=== PATIENT | male | born 1930 | race Caucasian/White ===

== ENCOUNTER → 2016-10-18 | Outpatient (CLI) | payer OTHER ==
[~2016-10-18] MED LIST: ASPI325T39 PO; ATOR-24 PO; FINA5TAB PO; HYT/10 PO; IPRA1AER2 INH; LSN5 PO; MULTTAB58 PO; NIAC1TAB52 PO; NITR0.4S UT; PLN25 PO; PROP20TA66 PO; TIOT1SPR INH; TRMCR130WC TOP; WARF-246 PO
[2016-10-18 13:17] LABS: ALT/SGPT 56 U/L (12-78); BLOOD UREA NITROGEN 16 mg/dl (7-18); BUN/CREATININE RATIO 14.3 (10-20); CALCIUM 8.6 mg/dl (8.5-10.1); CARBON DIOXIDE 27 mmol/L (21-32); CHLORIDE 106 mmol/L (98-107); CHOLESTEROL 141 mg/dl (0-200); GLUCOSE 123 mg/dl (70-99); SODIUM 141 mmol/L (136-145)
[2016-10-18 13:22] LABS: ALB/GLOB RATIO 1.1 (0.9-2); ALKALINE PHOSPHATASE 68 U/L (45-117); AST/SGOT 38 U/L (15-37); CHOLESTEROL/HDL RATIO 2.9; HDL CHOLESTEROL 48 mg/dl; LDL CHOLESTEROL CALCULATED 63 mg/dl; TRIGLYCERIDES 152 mg/dl (0-150); VERY LOW DENSITY LIPOPROT CALC 30 mg/dl
== END | disposition home or self-care (01) ==
LOC: C.LABPVFM 08:27
PROVIDERS: ATTEND Family Medicine
DX: E78.5 Hyperlipidemia, unspecified (principal); I10 Essential (primary) hypertension; J44.9 Chronic obstructive pulmonary disease, unspecified

== ENCOUNTER → 2016-10-28 | Outpatient (CLI) | payer OTHER ==
--- NOTE | 2016-10-28 16:05 | DIAGNOSTIC IMAGING REPORT ---
CHEST 2 VIEWS ROUTINE HISTORY: COPD COMPARISON: Chest 11/06/2015. FINDINGS: Emphysema with bibasilar interstitial thickening which is likely chronic. No new focal lung consolidations. No evidence for pulmonary edema. The heart remains borderline enlarged. No pleural effusions. No pneumothorax. IMPRESSION: Chronic changes as described above. No acute process within the chest. Electronically signed by: Orlando Song M.D. 10/28/2016 4:03 PM Dictated Date/Time: 10/28/2016 4:00 PM
== END | disposition home or self-care (01) ==
LOC: C.RADPV 15:48
PROVIDERS: ATTEND Family Medicine
DX: J44.9 Chronic obstructive pulmonary disease, unspecified (principal)

== ENCOUNTER → 2016-10-29 | Outpatient (CLI) | payer OTHER | END | disposition home or self-care (01) | LOC: C.LABPVFM 08:51 | PROVIDERS: ATTEND Family Medicine | DX: J44.9 Chronic obstructive pulmonary disease, unspecified (principal) ==

== ENCOUNTER → 2017-03-29 | Outpatient (CLI) | payer OTHER ==
[2017-03-29 13:08] LABS: ALT/SGPT 70 U/L (12-78); AST/SGOT 55 U/L (15-37); BLOOD UREA NITROGEN 16 mg/dl (7-18); BUN/CREATININE RATIO 16.9 (10-20); CALCIUM 9.1 mg/dl (8.5-10.1); CARBON DIOXIDE 25 mmol/L (21-32); CHLORIDE 106 mmol/L (98-107); CHOLESTEROL 143 mg/dl (0-200); CREATININE 0.97 mg/dl (0.60-1.40); GLUCOSE 141 mg/dl (70-99); SODIUM 139 mmol/L (136-145)
[2017-03-29 13:13] LABS: ALB/GLOB RATIO 1.1 (0.9-2); ALKALINE PHOSPHATASE 62 U/L (45-117); CHOLESTEROL/HDL RATIO 3.1; HDL CHOLESTEROL 46 mg/dl; LDL CHOLESTEROL CALCULATED 63 mg/dl; TRIGLYCERIDES 172 mg/dl (0-150); VERY LOW DENSITY LIPOPROT CALC 34 mg/dl
== END | disposition home or self-care (01) ==
LOC: C.LABPVFM 08:10
PROVIDERS: ATTEND Urology
DX: E78.5 Hyperlipidemia, unspecified (principal); N40.1 Benign prostatic hyperplasia with lower urinary tract symptoms; J44.9 Chronic obstructive pulmonary disease, unspecified; I25.10 Atherosclerotic heart disease of native coronary artery without angina pectoris; I10 Essential (primary) hypertension

== ENCOUNTER → 2017-05-05 | Outpatient (CLI) | payer OTHER ==
[2017-05-05 13:02] LABS: BASO % 0.3 %; BASO ABS # 0.03 K/uL (0-0.2); COMPLETE YES; EOS % 3.2 %; HEMATOCRIT 42.7 % (42-52); IG% 0.2 %; LYMPH % 18.3 %; LYMPH ABS # 1.64 K/uL (1.2-3.4); MEAN CELL VOLUME 94.7 fL (80-100); MEAN CORPUSCULAR HEMOGLOBIN 31.3 pg (25-34); MEAN PLATELET VOLUME 12.2 fL (7.4-10.4); PLATELET COUNT 148 K/uL (130-400); RED BLOOD COUNT 4.51 M/uL (4.7-6.1); WHITE BLOOD COUNT 8.96 K/uL (4.8-10.8)
== END | disposition home or self-care (01) ==
LOC: C.LABPVFM 08:41
PROVIDERS: ATTEND Family Medicine
DX: R74.8 Abnormal levels of other serum enzymes (principal); I48.91 Unspecified atrial fibrillation; N40.1 Benign prostatic hyperplasia with lower urinary tract symptoms; I25.10 Atherosclerotic heart disease of native coronary artery without angina pectoris; J44.9 Chronic obstructive pulmonary disease, unspecified

== ENCOUNTER → 2017-11-03 | Outpatient (CLI) | payer OTHER ==
[2017-11-03 14:09] LABS: ALBUMIN 3.6 gm/dl (3.4-5.0); ALT/SGPT 56 U/L (12-78); AST/SGOT 34 U/L (15-37); BLOOD UREA NITROGEN 14 mg/dl (7-18); CALCIUM 8.8 mg/dl (8.5-10.1); CARBON DIOXIDE 29 mmol/L (21-32); CHOLESTEROL 139 mg/dl (0-200); CREATININE 1.08 mg/dl (0.60-1.40); GLUCOSE 152 mg/dl (70-99); POTASSIUM 3.9 mmol/L (3.5-5.1); SODIUM 139 mmol/L (136-145)
[2017-11-03 14:11] LABS: ALKALINE PHOSPHATASE 71 U/L (45-117); LDL CHOLESTEROL CALCULATED 56 mg/dl; TOTAL PROTEIN 7.6 gm/dl (6.4-8.2)
== END | disposition home or self-care (01) ==
LOC: C.LABPVFM 07:50
PROVIDERS: ATTEND Family Medicine
DX: R05 Cough (principal); I48.91 Unspecified atrial fibrillation; N40.1 Benign prostatic hyperplasia with lower urinary tract symptoms; I25.10 Atherosclerotic heart disease of native coronary artery without angina pectoris; J44.9 Chronic obstructive pulmonary disease, unspecified; R74.8 Abnormal levels of other serum enzymes

== ENCOUNTER → 2017-11-04 | Outpatient (CLI) | payer OTHER | END | disposition home or self-care (01) | LOC: C.LABPVFM 07:47 | PROVIDERS: ATTEND Family Medicine | DX: R73.9 Hyperglycemia, unspecified (principal) ==

== ENCOUNTER 2020-12-28 19:40 | Observation (INO) ==
--- NOTE | 2020-12-28 19:52 | Emergency Department Note ---
History of Present Illness General Chief complaint: Cardiac Assessment Stated complaint: Chest tightness, cough Time Seen by Provider: 12/28/20 19:40 Source: patient Mode of arrival: EMS Limitations: no limitations History of Present Illness This patient is a 89-year-old male who comes in after having chest pain. He said that he had just finished eating was sit in a chair and had chest pain. By the time EMS arrived he got better he got an aspirin but he has been coughing. He may have trouble swallowing. He had no episode of choking. No shortness of breath. He had Covid vaccine x2 a couple months ago. This happened around 545 5. Again he was not choking at the time. No trauma. No lower extremity pain or swelling. No fever or chills. No recent illness. Home Medications Medication Instructions Recorded Confirmed Type multivitamin 1 tab PO DAILY 04/11/18 12/28/20 History nitroglycerin 0.4 mg SUBLINGUAL DIRECTED PRN 04/11/18 12/28/20 History calcium carbonate 600 mg (1,500 1 tab PO DAILY 01/14/19 12/28/20 History mg)-vitamin D3 400 unit tablet vitamin E (dl, acetate) 400 unit 400 units PO DAILY 01/14/19 12/28/20 History capsule ascorbic acid (vitamin C) 500 mg 500 mg PO DAILY tab 04/22/19 12/28/20 History tablet aspirin 81 mg tablet,delayed 81 mg PO DAILY #30 tab 04/22/19 12/28/20 History release niacin 250 mg capsule,extended 250 mg PO DAILY cap 04/22/19 12/28/20 History release felodipine 2.5 mg tablet,extended 2.5 mg PO BID #180 tab 12/20/19 12/28/20 Rx release 24 hr metformin 500 mg 24 hr 500 mg PO DAILY #90 tab 12/20/19 12/28/20 Rx tablet,extended release tiotropium bromide 2.5 2 puff INHALATION DAILY #4 gm 12/20/19 12/28/20 Rx mcg/actuation mist for inhalation metoprolol tartrate 25 mg tablet 37.5 mg PO BID #270 tab 09/15/20 12/28/20 Rx ipratropium 20 mcg-albuterol 100 1 puff INHALATION Q6H PRN #4 gm 09/24/20 12/28/20 Rx mcg/actuation mist for inhalation terazosin 10 mg capsule 10 mg PO HS #90 cap 10/28/20 12/28/20 Rx atorvastatin 40 mg tablet 40 mg PO QPM #90 tab 10/30/20 12/28/20 Rx metronidazole 500 mg PO TID #29 tab 11/06/20 12/28/20 Rx triamcinolone acetonide 1 applic TOPICAL BID PRN 11/06/20 12/28/20 History warfarin 2.5 mg PO TW 11/06/20 12/28/20 History lactobacillus combination no.8 3 3,000 mmu cells PO BID 28 Days #56 11/11/20 12/28/20 Rx billion cell capsule cap finasteride 5 mg tablet 5 mg PO DAILY #90 tab 12/22/20 12/28/20 Rx warfarin 5 mg tablet 5 mg PO .COMPLEX #90 tab 12/25/20 12/28/20 Rx Allergies Allergy/AdvReac Type Severity Reaction Status Date / Time No Known Allergies Allergy Unknown Verified 12/28/20 20:07 Past Med/Surg History Medical History Arthritis COPD exacerbation H/O prostate cancer Impaired fasting glucose GA (myocardial infarction) Pneumonia Sepsis Surgical History H/O cardiac catheterization History of heart artery stent Family History Other Myocardial infarction No pertinent family history Denies family history of Ovarian cancer Prostate cancer Breast cancer Colorectal cancer Social History Smoking Status: Former smoker Hx Alcohol Use: No Hx Substance Use: No Preferred Language: [place] Communication Ability: Effective Visual Impairment: No Limitations Hearing Ability: Normal Beliefs That Will Affect Care: None Current Living Situation: Alone current occupational status: retired Feels Safe at Home: Yes caffeine: Yes Dental Care, Regularly: Yes Physical Activity Frequency: 3-4 Times per Week Seatbelt Use: always Sunscreen Use: Yes Assistive Devices: Denture - Upper, Denture - Lower, Glasses and Hearing Aid - Bilateral Review of Systems A total of 10 systems reviewed and were otherwise negative Physical Exam Vital Signs Vital Signs - 24 hr 12/28/20 19:50 12/28/20 19:52 12/28/20 20:28 Temperature 36.1 C L Temperature Source Oral Pulse Rate 64 72 Pulse Rate from SpO2 Sensor 73 Pulse Rhythm Regular Pulse Strength Normal Respiratory Rate 18 16 Respiratory Effort / Characteristics Non-Labored Spontaneous Respiratory Depth Normal Respiratory Pattern Regular Blood Pressure 172/88 H 172/88 H Blood Pressure Mean 116 116 Blood Pressure Position Lying Pulse Oximetry 92 95 95 Oxygen Delivery Method Room Air Room Air Sepsis Recent Fever Within 48 Hours No Sepsis New/Unexplained Change in Mental Status N/A Sepsis Action Taken by Nursing No Action Required 12/28/20 21:20 12/28/20 22:29 Temperature Temperature Source Pulse Rate 65 58 L Pulse Rate from SpO2 Sensor 65 60 Pulse Rhythm Pulse Strength Respiratory Rate 20 19 Respiratory Effort / Characteristics Respiratory Depth Respiratory Pattern Blood Pressure 180/88 H 196/86 H Blood Pressure Mean 118 122 Blood Pressure Position Pulse Oximetry 94 94 Oxygen Delivery Method Sepsis Recent Fever Within 48 Hours Sepsis New/Unexplained Change in Mental Status Sepsis Action Taken by Nursing General: Well developed well nourished older male who is coughing frequently bringing up clear phlegm but in no acute distress, breathing comfortably on room air. Normal speech HEENT: Normal cephalic atraumatic. Pupils are equal round and reactive to light. Extraocular movements are intact. Oropharynx is pink with moist mucous membranes. No swelling of the mouth lips or tongue. Neck: Supple with a midline trachea. No meningeal signs or stiffness, no JVD or bruits. No Stridor. Chest: Clear to auscultation bilaterally. No wheezes or rhonchi. No increased work of breathing. Heart: Regular rate and rhythm without murmurs or gallops. Abdomen: Soft nontender, nondistended without rebound guarding or rigidity. Extremities: No cyanosis clubbing or edema. No calf tenderness or assymetry Spine/Back. Non tender to palpation. No CVA tenderness Skin: Good turgor without rashes. Neurologic exam: Cranial nerves two through 12 are intact. Motor and sensation are intact and symmetrical throughout. Medical Decision Making Differential Diagnosis Acute coronary syndrome, arrhythmia, CHF, esophageal foreign body/food impaction, GERD, electrolyte or metabolic abnormality Medical Records Attestation: I reviewed the patient's medical records. Home Medications Current Medication List: was personally reviewed by me Laboratory Data Attestation: I reviewed the patient's lab results. Result diagrams: 12/28/20 20:20 12/28/20 20:20 Lab Results 12/28/20 12/28/20 12/28/20 Range/Units 20:10 20:10 20:20 WBC 8.51 (4.8-10.8) K/uL RBC 4.15 L (4.7-6.1) M/uL Hgb 12.8 L (14.0-18.0) g/dL Hct 38.4 L (42-52) % MCV 92.5 (80-100) fL MCH 30.8 (25-34) pg MCHC 33.3 (32-36) g/dL RDW Std Deviation 48.1 H (36.4-46.3) fL RDW Coeff of Isela 14.2 (11.5-14.5) % Plt Count 158 (130-400) K/uL MPV 10.9 H (7.4-10.4) fL Immature Gran % (Auto) 0.2 % Neut % (Auto) 58.3 % Lymph % (Auto) 27.7 % Ha[place] % (Auto) 8.9 % Eos % (Auto) 4.5 % Baso % (Auto) 0.4 % Neut # (Auto) 4.96 (1.4-6.5) K/uL Lymph # (Auto) 2.36 (1.2-3.4) K/uL Haakon # (Auto) 0.76 H (0.11-0.59) K/uL Eos # (Auto) 0.38 (0-0.5) K/uL Baso # (Auto) 0.03 (0-0.2) K/uL Immature Gran # (Auto) 0.02 (0.00-0.02) K/uL PT (9.0-12.0) Seconds INR (0.9-1.1) APTT (21.0-31.0) Seconds PTT Ratio Sodium (136-145) mmol/L Potassium (3.5-5.1) mmol/L Chloride (98-107) mmol/L Carbon Dioxide (21-32) mmol/L Anion Gap (3-11) BUN (7-18) mg/dl Creatinine (0.6-1.4) mg/dl Est Cr Clr Drug Dosing ml/min Est GFR ( Amer) ml/min Est GFR (Non-Af Amer) ml/min BUN/Creatinine Ratio (10-20) Glucose (70-99) mg/dl Calcium (8.5-10.1) mg/dl Total Bilirubin (0.2-1) mg/dl AST (15-37) U/L ALT (12-78) U/L Alkaline Phosphatase (45-117) U/L Troponin I (0-0.045) ng/ml Total Protein (6.4-8.2) gm/dl Albumin (3.4-5.0) gm/dl Globulin (2.5-4.0) gm/dl Albumin/Globulin Ratio (0.9-2) Lipase (73-393) U/L COVID-19 Eval Order Covid19 at [facility] SARS-CoV-2 (PCR) NEGATIVE (Negative) 12/28/20 12/28/20 Range/Units 20:20 20:20 WBC (4.8-10.8) K/uL RBC (4.7-6.1) M/uL Hgb (14.0-18.0) g/dL Hct (42-52) % MCV (80-100) fL MCH (25-34) pg MCHC (32-36) g/dL RDW Std Deviation (36.4-46.3) fL RDW Coeff of Isela (11.5-14.5) % Plt Count (130-400) K/uL MPV (7.4-10.4) fL Immature Gran % (Auto) % Neut % (Auto) % Lymph % (Auto) % [place]ak[place] % (Auto) % Eos % (Auto) % Baso % (Auto) % Neut # (Auto) (1.4-6.5) K/uL Lymph # (Auto) (1.2-3.4) K/uL [place]on # (Auto) (0.11-0.59) K/uL Eos # (Auto) (0-0.5) K/uL Baso # (Auto) (0-0.2) K/uL Immature Gran # (Auto) (0.00-0.02) K/uL PT 21.6 H (9.0-12.0) Seconds INR 2.3 H (0.9-1.1) APTT 34.0 H (21.0-31.0) Seconds PTT Ratio 1.3 Sodium 142 (136-145) mmol/L Potassium 4.3 (3.5-5.1) mmol/L Chloride 108 H (98-107) mmol/L Carbon Dioxide 25 (21-32) mmol/L Anion Gap 9.0 (3-11) BUN 20 H (7-18) mg/dl Creatinine 1.08 (0.6-1.4) mg/dl Est Cr Clr Drug Dosing 53.1 ml/min Est GFR ( Amer) 70.6 ml/min Est GFR (Non-Af Amer) 61.0 ml/min BUN/Creatinine Ratio 18.2 (10-20) Glucose 149 H (70-99) mg/dl Calcium 9.0 (8.5-10.1) mg/dl Total Bilirubin 0.4 (0.2-1) mg/dl AST 30 (15-37) U/L ALT 39 (12-78) U/L Alkaline Phosphatase 58 (45-117) U/L Troponin I < 0.015 (0-0.045) ng/ml Total Protein 7.0 (6.4-8.2) gm/dl Albumin 3.3 L (3.4-5.0) gm/dl Globulin 3.7 (2.5-4.0) gm/dl Albumin/Globulin Ratio 0.9 (0.9-2) Lipase 99 (73-393) U/L COVID-19 Eval Order SARS-CoV-2 (PCR) (Negative) Imaging Data Attestation: I personally reviewed and interpreted this imaging study as follows: My Impression: Chest x-rayno acute infiltrate, failure, pneumothorax seen ECG Data Attestation: I personally reviewed and interpreted this ECG as follows: Indication: + chest pain and + vomiting Rate (beats per minute): 61 Rhythm: + normal sinus ECG Intervals/blocks: + Normal QRS and + Normal QT ECG [place]: + Normal ECG ST segments: + T-wave inversions (Laterally in lead I and aVL) Comparison ECG Date: from (11/06/20) Change: the following changes noted (T wave abnormalities are slightly more pronounced) MDM Narrative This patient is a an 89-year-old male is history of cardiac disease and COPD comes in after having episode of chest pain that seems to gotten better he has been coughing all night and he may have trouble swallowing I am concerned actually that he may have an esophageal food impaction, he denies that he was having a choking but he is holding an emesis bag with clear phlegm in it. He was placed on a air sampling and monitoring EKG chest x-ray multiple blood testing was obtained obtained. We did give him a fluid trial with p.o. water. His EKG shows some lateral to valve abnormalities which are slightly more pronounced but troponins not elevated. Chest x-ray was unremarkable there is no congestive heart failure pneumonia pneumothorax seen. He has no acute electrolyte or metabolic abnormalities. Looks well when I had him try to sip some fluids he says it feels like it galloway for the most part he holds down but then he does spit up a lot which he attributes to his COPD. I do think he likely does have an esophageal process or possibly a food bolus. I did discuss case with Dr. Angelita Maldonado who is the on-call testing [employer] shipping he agrees with admitting the patient to medicine and having further evaluation the patient may need GI intervention or endoscopy as well. Dr. Kovacs did see the patient in the ER for these measures. The patient is on Coumadin as well. Continuous cardiac monitoring: Order was placed in the EMR for continuous cardiac monitoring. The patient was noted to be normal sinus rhythm with a pulse of 60. Impression & Plan Chest pain, CAD (coronary artery disease), COPD (chronic obstructive pulmonary disease), Vomiting, Acute electrocardiogram changes Discharge Plan Visit Data Chief Complaint: Cardiac Assessment Stated Complaint: Chest tightness, cough ED Provider: You Hutchins Discharge Problem: Chest pain, CAD (coronary artery disease), COPD (chronic obstructive pulmonary disease), Vomiting, Acute electrocardiogram changes Forms Stand Alone Forms: My [facility] [employer] Prescriptions Prescriptions: No Action metoprolol tartrate 25 mg tablet 37.5 mg PO BID Qty: 270 RF: 3 ipratropium-albuterol 20-100 mcg/actuation mist 1 puff inhalation Q6H PRN (Reason: shortness of breath or wheezing) Qty: 4 RF: 5 terazosin 10 mg capsule 10 mg PO HS Qty: 90 RF: 3 atorvastatin 40 mg tablet 40 mg PO QPM Qty: 90 RF: 3 finasteride 5 mg tablet 5 mg PO DAILY Qty: 90 RF: 1 warfarin 5 mg tablet 5 mg PO .COMPLEX Qty: 90 RF: 3 felodipine 2.5 mg tablet extended release 24 hr 2.5 mg PO BID Qty: 180 RF: 0 metformin 500 mg tablet,ER ayden.retention 24 hr 500 mg PO DAILY Qty: 90 RF: 1 Spiriva Respimat 2.5 mcg/actuation mist 2 puff INHALATION DAILY Qty: 4 RF: 5 calcium carbonate-vitamin D3 [Calcium 600 + D(3)] 600 mg(1,500mg) -400 unit tablet 1 tab PO DAILY RF: 0 vitamin E (dl, acetate) 400 unit capsule 400 units PO DAILY RF: 0 aspirin 81 mg tablet,delayed release (DR/EC) 81 mg PO DAILY Qty: 30 RF: 0 niacin 250 mg capsule, extended release 250 mg PO DAILY RF: 0 ascorbic acid (vitamin C) 500 mg tablet 500 mg PO DAILY RF: 0 Adult Probiotic 3 billion cell capsule 3,000 mmu cells PO BID 28 Days Qty: 56 RF: 0 nitroglycerin 0.4 mg Tablet, Sublingual 0.4 mg Sublingual DIRECTED PRN (Reason: Chest Pain) RF: 0 multivitamin Tablet 1 tab PO DAILY RF: 0 triamcinolone acetonide 0.1 % cream 1 applic topical BID PRN (Reason: Rash) RF: 0 warfarin 5 mg tablet 2.5 mg PO TW RF: 0 metronidazole 500 mg tablet 500 mg PO TID Qty: 29 RF: 0 Discharge Problem: Chest pain Qualifiers: Chest pain type: unspecified Qualified Code(s): R07.9 - Chest pain, unspecified CAD (coronary artery disease) Qualifiers: Coronary Disease-Associated Artery/Lesion type: unspecified vessel or lesion type [place] vs. transplanted heart: tribal heart Associated angina: without angina Qualified Code(s): I25.10 - Atherosclerotic heart disease of tribal coronary artery without angina pectoris COPD (chronic obstructive pulmonary disease) Qualifiers: COPD type: unspecified COPD Qualified Code(s): J44.9 - Chronic obstructive pulmonary disease, unspecified Vomiting Qualifiers: Vomiting type: unspecified Vomiting Intractability: unspecified Nausea presence: with nausea Qualified Code(s): R11.2 - Nausea with vomiting, unspecified
[2020-12-28 20:30] LABS: Basophils # (auto) 0.03 K/uL (0-0.2); Basophils % (auto) 0.4 %; Eosinophils # (auto) 0.38 K/uL (0-0.5); Eosinophils % (auto) 4.5 %; Hematocrit (blood only) 38.4 % (42-52); Hemoglobin 12.8 g/dL (14.0-18.0); Immature Granulocytes # (auto) 0.02 K/uL (0.00-0.02); Immature Granulocytes % (auto) 0.2 %; Lymphocytes # (auto) 2.36 K/uL (1.2-3.4); Lymphocytes % (auto) 27.7 %; Mean Corpuscular Hemoglobin 30.8 pg (25-34); Mean Corpuscular Hgb Conc 33.3 g/dL (32-36); Mean Corpuscular Volume 92.5 fL (80-100); Mean Platelet Volume 10.9 fL (7.4-10.4); Monocytes # (auto) 0.76 K/uL (0.11-0.59); Monocytes % (auto) 8.9 %; Neutrophils # (auto) 4.96 K/uL (1.4-6.5); Neutrophils % (auto) 58.3 %; Platelet Count 158 K/uL (130-400); RDW Coefficient of Variation 14.2 % (11.5-14.5); RDW Standard Deviation 48.1 fL (36.4-46.3); Red Blood Count 4.15 M/uL (4.7-6.1); White Blood Count 8.51 K/uL (4.8-10.8)
[2020-12-28 20:55] LABS: INR 2.3 (0.9-1.1); Partial Thromboplastin Ratio 1.3; Prothrombin Time 21.6 Seconds (9.0-12.0)
[2020-12-28 21:02] LABS: Alanine Aminotransferase 39 U/L (12-78); Albumin Level 3.3 gm/dl (3.4-5.0); Aspartate Aminotransferase 30 U/L (15-37); BUN Creatinine Ratio 18.2 (10-20); Blood Urea Nitrogen 20 mg/dl (7-18); Carbon Dioxide 25 mmol/L (21-32); Chloride 108 mmol/L (98-107); Creatinine Clr Calc Pharmacy 53.1 ml/min; Est GFR (African American) 70.6 ml/min; Glucose 149 mg/dl (70-99); Lipase 99 U/L (73-393); Potassium 4.3 mmol/L (3.5-5.1); Sodium 142 mmol/L (136-145)
[2020-12-28 21:07] LABS: Albumin Globulin Ratio 0.9 (0.9-2); Alkaline Phosphatase 58 U/L (45-117); Bilirubin,Total 0.4 mg/dl (0.2-1); Globulin 3.7 gm/dl (2.5-4.0); Troponin I < 0.015 ng/ml (0-0.045)
--- NOTE | 2020-12-28 23:36 | History & Physical Report ---
Date of Service December 28, 2020 Assessment & Plan (1) Dysphagia: Acute epigastric pain/dysphagia- His symptoms are most suggestive of a potential food bolus and/or other cause of obstruction. Patient is unable to swallow well, and has to continually spit his secretions into a bag. His primary complaint during my assessment was that of epigastric discomfort and inability to swallow solids or liquids. Famotidine 20 mg IV every 12 hours Gastroenterology has been consulted by the ED and will see patient in a.m Present on Admission?: Yes (2) Abnormal EKG: Minor T wave inversions in leads I and aVL on EKG/CAD/hypertension/atrial fibrillation- Normal troponin EKG not significantly different compared to the past for EKGs earlier this year Hold oral medications due to significant discomfort and dysphagia, inability to swallow medications Placed on Nitropaste 1 inch to anterior chest wall every 6 hours The patient will be admitted to telemetry for serial cardiac enzymes, serial EKG's, cardiac rhythm monitoring and a 2-D echocardiogram with Dopplers. Hydralazine 10 mg IV every 4 hours as needed systolic blood pressure greater than 160 Present on Admission?: Yes (3) CAD (coronary artery disease): See above Present on Admission?: Yes (4) Acute epigastric pain: See above Present on Admission?: Yes (5) HLD (hyperlipidemia): For now hold atorvastatin Present on Admission?: Yes (6) Diabetes: Hold Metformin Placed in Accu-Cheks before meals and at bedtime with NovoLog coverage per scale Present on Admission?: Yes (7) COPD (chronic obstructive pulmonary disease): Continue usual inhalers Present on Admission?: Yes (8) AF (atrial fibrillation): Hold warfarin for now Present on Admission?: Yes (9) HTN (hypertension): History of Present Illness Chief Complaint: The patient reports the development of the acute onset of epigastric and substernal chest discomfort while eating supper this evening, which is also affected his ability to take a deep breath Primary Care Provider: Eddi Ruff, The patient is an 89-year-old male with a past medical history including frequent falls, noncompliance, vitamin D deficiency, memory impairment, prostate cancer, former smoker, COPD, CAD, diabetes mellitus, hyperlipidemia, hypertension and atrial fibrillation. Patient presents with the above symptoms. Assessment in the emergency department was most consistent with significant dysphagia to both solids and liquids, and while in the ED, patient was continually spitting into a bag. GI has been contacted by the ED, and patient will likely need an endoscopy. His EKG did show T wave inversions in leads I and aVL. Allergies Allergy/AdvReac Type Severity Reaction Status Date / Time No Known Allergies Allergy Unknown Verified 12/28/20 20:07 Home Medications Medication Instructions Recorded Confirmed Type multivitamin 1 tab PO DAILY 04/11/18 12/28/20 History nitroglycerin 0.4 mg SUBLINGUAL DIRECTED PRN 04/11/18 12/28/20 History calcium carbonate 600 mg (1,500 1 tab PO DAILY 01/14/19 12/28/20 History mg)-vitamin D3 400 unit tablet vitamin E (dl, acetate) 400 unit 400 units PO DAILY 01/14/19 12/28/20 History capsule ascorbic acid (vitamin C) 500 mg 500 mg PO DAILY tab 04/22/19 12/28/20 History tablet aspirin 81 mg tablet,delayed 81 mg PO DAILY #30 tab 04/22/19 12/28/20 History release niacin 250 mg capsule,extended 250 mg PO DAILY cap 04/22/19 12/28/20 History release felodipine 2.5 mg tablet,extended 2.5 mg PO BID #180 tab 12/20/19 12/28/20 Rx release 24 hr metformin 500 mg 24 hr 500 mg PO DAILY #90 tab 12/20/19 12/28/20 Rx tablet,extended release tiotropium bromide 2.5 2 puff INHALATION DAILY #4 gm 12/20/19 12/28/20 Rx mcg/actuation mist for inhalation metoprolol tartrate 25 mg tablet 37.5 mg PO BID #270 tab 09/15/20 12/28/20 Rx ipratropium 20 mcg-albuterol 100 1 puff INHALATION Q6H PRN #4 gm 09/24/20 12/28/20 Rx mcg/actuation mist for inhalation terazosin 10 mg capsule 10 mg PO HS #90 cap 10/28/20 12/28/20 Rx atorvastatin 40 mg tablet 40 mg PO QPM #90 tab 10/30/20 12/28/20 Rx metronidazole 500 mg PO TID #29 tab 11/06/20 12/28/20 Rx triamcinolone acetonide 1 applic TOPICAL BID PRN 11/06/20 12/28/20 History warfarin 2.5 mg PO TW 11/06/20 12/28/20 History lactobacillus combination no.8 3 3,000 mmu cells PO BID 28 Days #56 11/11/20 12/28/20 Rx billion cell capsule cap finasteride 5 mg tablet 5 mg PO DAILY #90 tab 12/22/20 12/28/20 Rx warfarin 5 mg tablet 5 mg PO .COMPLEX #90 tab 12/25/20 12/28/20 Rx Past Med/Surg History Medical History Arthritis COPD exacerbation H/O prostate cancer Impaired fasting glucose NC (myocardial infarction) Pneumonia Sepsis Surgical History H/O cardiac catheterization History of heart artery stent Family History Other Myocardial infarction No pertinent family history Denies family history of Ovarian cancer Prostate cancer Breast cancer Colorectal cancer Social History Smoking Status: Former smoker Hx Alcohol Use: No Hx Substance Use: No Preferred Language: Thai Communication Ability: Effective Visual Impairment: No Limitations Hearing Ability: Normal Beliefs That Will Affect Care: None Current Living Situation: Alone current occupational status: retired Feels Safe at Home: Yes Safety Concerns: Feels Safe At This Time caffeine: Yes Dental Care, Regularly: Yes Physical Activity Frequency: 3-4 Times per Week Seatbelt Use: always Sunscreen Use: Yes Assistive Devices: Denture - Upper, Denture - Lower, Glasses and Hearing Aid - Bilateral Review of Systems Review of Systems: The patient denies palpitations, cough, lower extremity swelling, sore throat, fevers, chills, sweats, weight change, fatigue, nausea, vomiting, diarrhea , constipation, pelvic pain, blood in urine or stool, dysuria, urinary frequency or urgency, lightheadedness, dizziness, headache, memory loss, loss of consciousness, rash, abnormal bruising or bleeding, imbalance, focal or generalized weakness, numbness or tingling in arms or legs, generalized arthralgias or myalgias, back or neck pain, or night sweats. The review of systems is otherwise negative other than for that already noted above, and at least 10 systems have been reviewed. Physical Exam Physical Exam: The patient is awake, alert and oriented 3, well developed and well nourished, normocephalic and atraumatic, lying in bed and in no acute distress. HEENT--PERRL, EOMI, mucous membranes and oropharynx dry. Neck--supple. No JVD. No bruits. Thyroid normal, trachea midline, no adenopath y. Heart--normal S1 and S2. No murmurs, rubs or gallops. Lungs--clear bilaterally, no respiratory distress, no accessory muscle use. Abdomen--normal bowel sounds and soft. Nontender. Mildly symptomatic. Nondistended. Obese Extremities--no cyanosis or clubbing. No edema. Dermatologic--normal skin turgor, normal color, no abnormal lymph nodes, no rash. Neurologic--cranial nerves II through XII grossly intact. Rheumatologic--normal range of motion. Psychiatric--normal affect. Results & Data Results & Data ([facility]) Vital Signs (Past 12 Hours) Vital Signs Temp Pulse Resp BP Pulse Ox 12/28/20 22:29 58 L 19 196/86 H 94 12/28/20 21:20 65 20 180/88 H 94 12/28/20 20:28 95 12/28/20 19:52 97.0 F L 72 16 172/88 H 95 12/28/20 19:50 64 18 172/88 H 92 Laboratory Results Laboratory Results WBC 8.51 K/uL (4.8-10.8) 12/28/20 20:20 RBC 4.15 M/uL (4.7-6.1) L 12/28/20 20:20 Hgb 12.8 g/dL (14.0-18.0) L 12/28/20 20:20 Hct 38.4 % (42-52) L 12/28/20 20:20 MCV 92.5 fL (80-100) 12/28/20 20:20 MCH 30.8 pg (25-34) 12/28/20 20:20 MCHC 33.3 g/dL (32-36) 12/28/20 20:20 RDW Std Deviation 48.1 fL (36.4-46.3) H 12/28/20:20 RDW Coeff of Isela 14.2 % (11.5-14.5) 12/28/20 20:20 Plt Count 158 K/uL (130-400) 12/28/20 20:20 MPV 10.9 fL (7.4-10.4) H 12/28/20 20:20 Immature Gran % (Auto) 0.2 % 12/28/20 20:20 Neut % (Auto) 58.3 % 12/28/20 20:20 Lymph % (Auto) 27.7 % 12/28/20 20:20 Guthrie % (Auto) 8.9 % 12/28/20 20:20 Eos % (Auto) 4.5 % 12/28/20 20:20 Baso % (Auto) 0.4 % 12/28/20 20:20 Neut # (Auto) 4.96 K/uL (1.4-6.5) 12/28/20 20:20 Lymph # (Auto) 2.36 K/uL (1.2-3.4) 12/28/20 20:20 Guthrie # (Auto) 0.76 K/uL (0.11-0.59) H 12/28/20 20:20 Eos # (Auto) 0.38 K/uL (0-0.5) 12/28/20 20:20 Baso # (Auto) 0.03 K/uL (0-0.2) 12/28/20 20:20 Immature Gran # (Auto) 0.02 K/uL (0.00-0.02) 12/28/20 20:20 PT 21.6 Seconds (9.0-12.0) H 12/28/20 20:20 INR 2.3 (0.9-1.1) H 12/28/20 20:20 APTT 34.0 Seconds (21.0-31.0) H 12/28/20 20:20 PTT Ratio 1.3 12/28/20 20:20 Sodium 142 mmol/L (136-145) 12/28/20 20:20 Potassium 4.3 mmol/L (3.5-5.1) 12/28/20 20:20 Chloride 108 mmol/L (98-107) H 12/28/20 20:20 Carbon Dioxide 25 mmol/L (21-32) 12/28/20 20:20 Anion Gap 9.0 (3-11) 12/28/20 20:20 BUN 20 mg/dl (7-18) H 12/28/20 20:20 Creatinine 1.08 mg/dl (0.6-1.4) 12/28/20 20:20 Est Cr Clr Drug Dosing 53.1 ml/min 12/28/20 20:20 Est GFR ( Amer) 70.6 ml/min 12/28/20 20:20 Est GFR (Non-Af Amer) 61.0 ml/min 12/28/20 20:20 BUN/Creatinine Ratio 18.2 (10-20) 12/28/20 20:20 Glucose 149 mg/dl (70-99) H 12/28/20 20:20 POC Glucose 120 mg/dl (70-99) H 12/29/20 01:19 Calcium 9.0 mg/dl (8.5-10.1) 12/28/20 20:20 Total Bilirubin 0.4 mg/dl (0.2-1) 12/28/20 20:20 AST 30 U/L (15-37) 12/28/20 20:20 ALT 39 U/L (12-78) 12/28/20 20:20 Alkaline Phosphatase 58 U/L (45-117) 12/28/20 20:20 Troponin I < 0.015 ng/ml (0-0.045) 12/28/20 20:20 Total Protein 7.0 gm/dl (6.4-8.2) 12/28/20 20:20 Albumin 3.3 gm/dl (3.4-5.0) L 12/28/20 20:20 Globulin 3.7 gm/dl (2.5-4.0) 12/28/20 20:20 Albumin/Globulin Ratio 0.9 (0.9-2) 12/28/20 20:20 Lipase 99 U/L (73-393) 12/28/20 20:20 COVID-19 Eval Order Covid19 at [facility] 12/28/20 20:10 SARS-CoV-2 (PCR) NEGATIVE (Negative) 12/28/20 20:10 Diagnostic Findings Code Status & VTE Plan Code Status Full code VTE Prophylaxis Plan VTE Prophylaxis will be ordered: Yes PG Care Time/CCT Total # of Minutes Spent Total Time Spent with Patient: Total time spent is greater than 50% in coordination of care (as documented) at patient's floor/unit and/or counseling patient: Coding Level of Care Code 55028 OBS Care - Level 3 Diagnoses Dysphagia R13.10 Abnormal EKG R94.31 CAD (coronary artery disease) I25.10 Associated angina: without angina Coronary Disease-Associated Artery/Lesion type: unspecified vessel or lesion type [place] vs. transplanted heart: marshall heart Acute epigastric pain R10.13 HLD (hyperlipidemia) E78.5 Diabetes E11.9 COPD (chronic obstructive pulmonary disease) J44.9 COPD type: unspecified COPD AF (atrial fibrillation) I48.91 HTN (hypertension) I10 (1) CAD (coronary artery disease) Associated angina: without angina Coronary Disease-Associated Artery/Lesion type: unspecified vessel or lesion type [place] vs. transplanted heart: marshall heart Qualified Code(s): I25.10 - Atherosclerotic heart disease of marshall coronary artery without angina pectoris (2) COPD (chronic obstructive pulmonary disease) COPD type: unspecified COPD Qualified Code(s): J44.9 - Chronic obstructive pulmonary disease, unspecified
[2020-12-29] MEDS ORDERED: CARBOHYDRATES FOR HYPOGLYCEMIA PO PRN (00:24)
[2020-12-29] MEDS ORDERED: GLUCOSE 40% GEL 15 GM TUBE PO PRN (00:24)
[2020-12-29] MEDS ORDERED: hydrALAZINE HCL 20 MG/ML VIAL IV PRN (00:24)
[2020-12-29] MEDS ORDERED: GLUCOSE 10 TABS/TUBE PO PRN (00:24)
[2020-12-29] MEDS ORDERED: DEXTROSE 50% 50 ML SYRINGE IV PRN (00:24)
[2020-12-29] MEDS ORDERED: ONDANSETRON INJ 2 MG/ML 2 ML VIAL IV PRN (00:24)
[2020-12-29] MEDS ORDERED: IPRATROPIUM BROMIDE/ALBUTEROL respimat INH INH PRN (00:24)
[2020-12-29] MEDS ORDERED: GLUCAGON FOR INJ 1 MG VIAL SQ PRN (00:24)
[2020-12-29] MEDS ORDERED: Ipratropium HFA Inhaler (Combivent Respimat P&T Subs) INH PRN (01:03)
[2020-12-29] MEDS ORDERED: Albuterol HFA 8 GM Inhaler (Combivent Respimat P&T Subs) INH PRN (01:03)
[2020-12-29] MEDS: NSS + 20MEQ KCL 20 MEQ/1,000 ML BAG IV SCH ×2 (01:13→12:13)
[2020-12-29] MEDS: NITROGLYCERIN 2% OINTMENT 30GM TUBE EXT SCH ×3 (01:13→12:45)
[2020-12-29] MEDS: INSULIN ASPART 100 UNITS/ML 3 ML PEN SC SCH ×3 (01:22→12:12)
[2020-12-29] MEDS: FAMOTIDINE 20 MG in SYRINGE 3 ML IV SCH ×2 (01:47→12:09)
[2020-12-29 05:48] LABS: Basophils # (auto) 0.02 K/uL (0-0.2); Basophils % (auto) 0.2 %; Eosinophils # (auto) 0.32 K/uL (0-0.5); Eosinophils % (auto) 3.4 %; Hematocrit (blood only) 39.3 % (42-52); Hemoglobin 13.1 g/dL (14.0-18.0); Immature Granulocytes # (auto) 0.02 K/uL (0.00-0.02); Immature Granulocytes % (auto) 0.2 %; Lymphocytes # (auto) 2.78 K/uL (1.2-3.4); Mean Corpuscular Hemoglobin 30.3 pg (25-34); Mean Corpuscular Hgb Conc 33.3 g/dL (32-36); Mean Corpuscular Volume 90.8 fL (80-100); Mean Platelet Volume 11.4 fL (7.4-10.4); Monocytes # (auto) 0.97 K/uL (0.11-0.59); Monocytes % (auto) 10.5 %; Neutrophils # (auto) 5.17 K/uL (1.4-6.5); Neutrophils % (auto) 55.7 %; Platelet Count 142 K/uL (130-400); Red Blood Count 4.33 M/uL (4.7-6.1); White Blood Count 9.28 K/uL (4.8-10.8)
[2020-12-29 05:58] LABS: INR 2.3 (0.9-1.1); Partial Thromboplastin Ratio 1.3; Partial Thromboplastin Time 34.7 Seconds (21.0-31.0); Prothrombin Time 21.8 Seconds (9.0-12.0)
[2020-12-29 06:21] LABS: Alanine Aminotransferase 36 U/L (12-78); Albumin Level 3.3 gm/dl (3.4-5.0); Aspartate Aminotransferase 25 U/L (15-37); BUN Creatinine Ratio 21.6 (10-20); Blood Urea Nitrogen 17 mg/dl (7-18); Calcium 8.5 mg/dl (8.5-10.1); Carbon Dioxide 27 mmol/L (21-32); Chloride 109 mmol/L (98-107); Creatinine Clr Calc Pharmacy 68.5 ml/min; Est GFR (African American) 93.9 ml/min; Glucose 116 mg/dl (70-99); Magnesium 2.2 mg/dl (1.8-2.4); Potassium 3.8 mmol/L (3.5-5.1); Sodium 141 mmol/L (136-145)
[2020-12-29 06:23] LABS: Albumin Globulin Ratio 0.9 (0.9-2); Alkaline Phosphatase 58 U/L (45-117); Bilirubin,Total 0.5 mg/dl (0.2-1); Globulin 3.6 gm/dl (2.5-4.0); Total Protein 6.9 gm/dl (6.4-8.2); Troponin I < 0.015 ng/ml (0-0.045)
[2020-12-29 06:51] LABS: Estimated Average Glucose 146 mg/dl; Hemoglobin A1C 6.7 % (4.5-5.6)
--- NOTE | 2020-12-29 07:30 | XRay Report ---
KUB HISTORY: Acute generalized abdominal pain with abdominal distention abdominal distention, dysphagia COMPARISON: Chest radiograph of same day, CT abdomen and pelvis 11/06/2020 FINDINGS: Cardiomegaly. Calcified plaque of the aorta. Calcific granuloma of the right lower lobe. Ca lcified pleural plaques are better seen on comparison CT. Chronic interstitial coarsening of the lung bases. There is no pneumatosis or pneumoperitoneum. The bowel gas pattern is nonobstructive. No urolith iden tified. Degenerative changes of the spine, pelvis and hips. IMPRESSION: Nonobstructive bowel gas pattern. ACT 112: Negative or not required by law. The above report was generated using voice recognition software. It may contain grammatical, syntax o r spelling errors. Electronically signed by: Jey Louie M.D. 12/29/2020 7:29 AM
--- NOTE | 2020-12-29 08:24 | XRay Report ---
XR chest 1V portable CLINICAL HISTORY: Chest Pain COMPARISON STUDY: July 22, 2020 FINDINGS: No pneumothorax. No pleural effusion. Coarse reticular opacities at bilateral lower lobes slightly improved since prior study in July 30. Redemonstration of calcified nodule at the right base. Cardiomediastinal silhouette remains prominent. Aorta is tortuous and calcified. No significant pulmonary vascular congestion.. Osseous structures: Osteopenia. Mild degenerative changes of the spine. IMPRESSION: 1. Coarse reticular opacities at bilateral bases is slightly improved since prior and might represen t areas of scarring. 2. Stable calcified nodule at the right base. 3. Prominence of cardiac silhouette. 4. Atherosclerosis. ACT 112: Negative or not required by law. The above report was generated using voice recognition software. It may contain grammatical, syntax o r spelling errors. Electronically signed by: Joslyn Peter DO 12/29/2020 8:23 AM
[2020-12-29] MEDS ORDERED: UMECLIDINIUM BROMIDE 62.5MCG/BLISTER 7 PUFFS/INHALER INH SCH (09:00)
--- NOTE | 2020-12-29 09:49 | Gastrointestinal Consultation ---
Date of Consultation December 29, 2020 Assessment & Plan (1) Dysphagia: Patient is presently denying that this is an ongoing issue. We discussed EGD and he is not agreeable to proceeding at this time. Would implement Pantoprazole 40 mg daily and if patient is agreeable, consider a barium swallow if there remains concerns for dysphagia despite the patient denying swallowing issues. Thank you for allowing us to participate in the care of this patient. If you should have any further questions or concerns, do not hesitate to contact us at extension [phone] or [phone]. Supervising Physician Co-Signing Physician Notes I personally evaluated the patient and agree with the findings as documented by Kelli Clifford, SHEY Exam: abd: soft, nt, nd History of Present Illness Reason for Consultation: Dysphagia Attending Physician: Cory Colon, History of Present Illness Patient is an 89 yo male with a PMH of COPD, CAD, DM2, HLD, & Atrial Fibrillation who presented to the emergency department with complaints of chest pain. GI has been asked to evaluate for dysphagia. The patient reports to me this morning that he is not interested in further endoscopic evaluation as he is not consistently struggling with swallowing solids & liquids. He notes one incident with swallowing an Aspirin yesterday, but denies that this has happened previously. He denies melena, hematemesis, abdominal pain, reflux, or heartburn. He does note that he has a lot of post-nasal drip that he has been coughing up lately. He denies a history of GI issues personally or any known family history of GI issues. He was noted to have an abnormal EKG on admission with minor T wave inversions in leads I and aVL. Troponin has been unremarkable. He is on Warfarin daily for his Afib. He does not want to have an EGD. Allergies Allergy/AdvReac Type Severity Reaction Status Date / Time No Known Allergies Allergy Unknown Verified 12/28/20 20:07 Home Medications Medication Instructions Recorded Confirmed Type multivitamin 1 tab PO DAILY 04/11/18 12/28/20 History nitroglycerin 0.4 mg SUBLINGUAL DIRECTED PRN 04/11/18 12/28/20 History calcium carbonate 600 mg (1,500 1 tab PO DAILY 01/14/19 12/28/20 History mg)-vitamin D3 400 unit tablet vitamin E (dl, acetate) 400 unit 400 units PO DAILY 01/14/19 12/28/20 History capsule ascorbic acid (vitamin C) 500 mg 500 mg PO DAILY tab 04/22/19 12/28/20 History tablet aspirin 81 mg tablet,delayed 81 mg PO DAILY #30 tab 04/22/19 12/28/20 History release niacin 250 mg capsule,extended 250 mg PO DAILY cap 04/22/19 12/28/20 History release felodipine 2.5 mg tablet,extended 2.5 mg PO BID #180 tab 12/20/19 12/28/20 Rx release 24 hr metformin 500 mg 24 hr 500 mg PO DAILY #90 tab 12/20/19 12/28/20 Rx tablet,extended release tiotropium bromide 2.5 2 puff INHALATION DAILY #4 gm 12/20/19 12/28/20 Rx mcg/actuation mist for inhalation metoprolol tartrate 25 mg tablet 37.5 mg PO BID #270 tab 09/15/20 12/28/20 Rx ipratropium 20 mcg-albuterol 100 1 puff INHALATION Q6H PRN #4 gm 09/24/20 12/28/20 Rx mcg/actuation mist for inhalation terazosin 10 mg capsule 10 mg PO HS #90 cap 10/28/20 12/28/20 Rx atorvastatin 40 mg tablet 40 mg PO QPM #90 tab 10/30/20 12/28/20 Rx metronidazole 500 mg PO TID #29 tab 11/06/20 12/28/20 Rx triamcinolone acetonide 1 applic TOPICAL BID PRN 11/06/20 12/28/20 History warfarin 2.5 mg PO TW 11/06/20 12/28/20 History lactobacillus combination no.8 3 3,000 mmu cells PO BID 28 Days #56 11/11/20 12/28/20 Rx billion cell capsule cap finasteride 5 mg tablet 5 mg PO DAILY #90 tab 12/22/20 12/28/20 Rx warfarin 5 mg tablet 5 mg PO .COMPLEX #90 tab 12/25/20 12/28/20 Rx Patient History Medical History Arthritis COPD exacerbation H/O prostate cancer Impaired fasting glucose [place] (myocardial infarction) Pneumonia Sepsis Surgical History H/O cardiac catheterization History of heart artery stent Family History Other Myocardial infarction No pertinent family history Denies family history of Ovarian cancer Prostate cancer Breast cancer Colorectal cancer Social History Smoking Status: Former smoker Hx Alcohol Use: No Hx Substance Use: No Preferred Language: [place] Communication Ability: Effective Visual Impairment: No Limitations Hearing Ability: Normal Beliefs That Will Affect Care: None Current Living Situation: Alone current occupational status: retired Feels Safe at Home: Yes Safety Concerns: Feels Safe At This Time caffeine: Yes Dental Care, Regularly: Yes Physical Activity Frequency: 3-4 Times per Week Seatbelt Use: always Sunscreen Use: Yes Assistive Devices: Denture - Upper, Denture - Lower, Glasses and Hearing Aid - Bilateral Review of Systems Constitutional: no fever and no chills Respiratory: no cough and no dyspnea Cardiovascular: + chest pain (improved) Gastrointestinal: no abdominal pain, no nausea, no vomiting, no coffee ground emesis, no dysphagia and no melena Psychiatric: no problem reported Physical Exam Constitutional: well developed Respiratory: normal respiratory effort Cardiovascular: Rate/Rhythm: regular rate Extremities: no edema Gastrointestinal (Abdomen): normal bowel sounds, soft, nontender, no hepatosplenomegaly Musculoskeletal: Head/Neck/Chest: normocephalic Psychiatric: A+Ox3, euthymic affect Results & Data ([facility]) Vital Signs (Past 12 Hours) Vital Signs Temp Pulse Pulse Resp BP BP Pulse Ox 12/29/20 08:38 65 12/29/20 07:02 36.8 C 73 19 184/79 H 98 12/29/20 04:00 156/88 H 12/29/20 03:40 36.8 C 69 20 187/82 H 90 12/29/20 00:52 77 12/29/20 00:20 36.4 C L 78 18 175/72 H 94 12/29/20 00:06 78 20 173/92 H 97 12/28/20 22:29 58 L 19 196/86 H 94 PG Care Time/CCT Total # of Minutes Spent Total Time Spent with Patient: Total time spent is greater than 50% in coordination of care (as documented) at patient's floor/unit and/or counseling patient: Coding Level of Care Code 41449 Initial Inpt Care Lvl 3 Diagnoses Dysphagia R13.10
[2020-12-29] MEDS ORDERED: PANTOprazole 40 MG TAB PO ONE (11:00)
--- NOTE | 2020-12-29 14:23 | Electrocardiogram Report ---
Test Reason : Blood Pressure : / mmHG Vent. 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
--- NOTE | 2020-12-29 14:44 | Electrocardiogram Report ---
Test Reason : Blood Pressure : / mmHG Vent. Rate : 076 BPM Atrial Rate : 076 BPM P-R Int : 150 ms QRS Dur : 090 ms QT Int : 408 ms P-R-T Axes : 039 -03 011 degrees QTc Int : 459 ms Poor data quality, interpretation may be adversely affected Normal sinus rhythm Normal ECG When compared with ECG of 29-DEC-2020 03:52, (unconfirmed) T wave inversion now evident in Inferior leads T wave inversion no longer evident in Lateral leads Confirmed by Blaise Locke ([id number]) on 12/29/2020 2:43:55 PM Referred By: REFERRED SELF Confirmed By:Blaise Locke
[2020-12-29] MEDS ORDERED: FELODIPINE 2.5 MG TABCR PO SCH (16:00)
[2020-12-29] MEDS ORDERED: INSULIN ASPART 100 UNITS/ML 3 ML PEN SC SCH (16:30)
[2020-12-30] MEDS ORDERED: PANTOprazole 40 MG TAB PO SCH (09:00)
--- NOTE | 2020-12-31 12:29 | Discharge Summary ---
Date of Service December 29, 2020 Admission HPI Per Admitting Provider The patient is an 89-year-old male with a past medical history including frequent falls, noncompliance, vitamin D deficiency, memory impairment, prostate cancer, former smoker, COPD, CAD, diabetes mellitus, hyperlipidemia, hypertension and atrial fibrillation. Patient presents with the above symptoms. Assessment in the emergency department was most consistent with significant dysphagia to both solids and liquids, and while in the ED, patient was continually spitting into a bag. GI has been contacted by the ED, and patient will likely need an endoscopy. His EKG did show T wave inversions in leads I and aVL. Principal Diagnosis Dysphagia Discharge Data Allergies Allergy/AdvReac Type Severity Reaction Status Date / Time No Known Allergies Allergy Unknown Verified 12/28/20 20:07 Consultations 12/28/20 23:10 ED Decision to Admit Stat 12/29/20 00:24 Consult Gastroenterology Routine Hospital Course (1) Dysphagia: Acute epigastric pain/dysphagia- His symptoms are most suggestive of a potential food bolus and/or other cause of obstruction. patient had no symptoms at all after about 12 hours into admission he ate breakfast and lunch without any issue gastroenterology saw the patient in the morning, he refused EGD, he said all of his symptoms had completely resolved I discussed trying a barium swallow study to see if he had any anatomical issues such as Zenker's diverticulum or any motility issues, he refused I suggested he follow up with his PCP if he continues to have issues, try a barium swallow as outpatient as first line of work up will place on Protonix 40mg PO daily to see if this helps resolve symptoms as well (2) Abnormal EKG: Minor T wave inversions in leads I and aVL on EKG/CAD/hypertension/atrial fibrillation- Normal troponin EKG not significantly different compared to the past for EKGs earlier this year feels great, no chest pain, negative troponin, no further work up, he wants to go home (3) CAD (coronary artery disease): See above (4) Acute epigastric pain: See above (5) HLD (hyperlipidemia): For now hold atorvastatin (6) Diabetes: resume Metformin (7) COPD (chronic obstructive pulmonary disease): Continue usual inhalers (8) AF (atrial fibrillation): continue Warfarin as there are no plans for EGD (9) HTN (hypertension): Total Time Total Time Spent Total Time Spent (In Minutes): 32 Total Time Includes: Examination of the Patient, Discharge Planning, Medication Reconciliation and Communication With Other Providers Discharge Plan Discharge Items Patient Disposition: Home - Self-Care Reason For Visit: DYSPHAGIA, ABNORMAL EKG Discharge Diagnosis: Dysphagia (difficulty swallowing) Condition on Discharge: Good Activity: Resume your previous activity Non-emergency contact: Primary Care Provider Call non-emergency contact if: you have any medication questions Follow-up/Referrals: Eddi Ruff DO [Primary Care Provider] - 01/06/21 1:30 pm (one week january 06 @ [address] Ruff) Diet: Carb Consistent or DM2 and Heart Healthy Addtl Attending Provider Instructions: Medications: continue all prior medications - PANTOPRAZOLE: 40mg daily, try to take 30 minutes prior to meal (either breakfast or dinner), this will treat possible reflux as cause of symptoms Difficulty swallowing, chest pain symptoms resolved GI recommends a barium swallow study if you have recurrent symptoms at home, this can be arranged by PCP recommend you eat soft, easy to chew foods, if you eat meat or poultry you should use condiments or sauces or gravy, alternate solids with small sips of liquid eat slowly and upright chest pain: no evidence of heart attack, troponin was negative Pending Studies at Discharge: No Stand-Alone Forms: My [employer], Smoking Cessation Medications and DC Order Prescriptions: New pantoprazole 40 mg Tablet,Delayed Release (Dr/Ec) 40 mg PO QAM 30 Days Qty: 30 RF: 0 Continued metoprolol tartrate 25 mg tablet 37.5 mg PO BID Qty: 270 RF: 3 ipratropium-albuterol 20-100 mcg/actuation mist 1 puff inhalation Q6H PRN (Reason: shortness of breath or wheezing) Qty: 4 RF: 5 terazosin 10 mg capsule 10 mg PO HS Qty: 90 RF: 3 atorvastatin 40 mg tablet 40 mg PO QPM Qty: 90 RF: 3 finasteride 5 mg tablet 5 mg PO DAILY Qty: 90 RF: 1 warfarin 5 mg tablet 5 mg PO .COMPLEX Qty: 90 RF: 3 felodipine 2.5 mg tablet extended release 24 hr 2.5 mg PO BID Qty: 180 RF: 0 metformin 500 mg tablet,ER ayden.retention 24 hr 500 mg PO DAILY Qty: 90 RF: 1 Spiriva Respimat 2.5 mcg/actuation mist 2 puff INHALATION DAILY Qty: 4 RF: 5 calcium carbonate-vitamin D3 [Calcium 600 + D(3)] 600 mg(1,500mg) -400 unit tablet 1 tab PO DAILY RF: 0 vitamin E (dl, acetate) 400 unit capsule 400 units PO DAILY RF: 0 aspirin 81 mg tablet,delayed release (DR/EC) 81 mg PO DAILY Qty: 30 RF: 0 niacin 250 mg capsule, extended release 250 mg PO DAILY RF: 0 ascorbic acid (vitamin C) 500 mg tablet 500 mg PO DAILY RF: 0 Adult Probiotic 3 billion cell capsule 3,000 mmu cells PO BID 28 Days Qty: 56 RF: 0 nitroglycerin 0.4 mg Tablet, Sublingual 0.4 mg Sublingual DIRECTED PRN (Reason: Chest Pain) RF: 0 multivitamin Tablet 1 tab PO DAILY RF: 0 triamcinolone acetonide 0.1 % cream 1 applic topical BID PRN (Reason: Rash) RF: 0 warfarin 5 mg tablet 2.5 mg PO TW RF: 0 metronidazole 500 mg tablet 500 mg PO TID Qty: 29 RF: 0 Discharge Orders: Discharge Order (Routine); Ordered 12/29/20 Ordered By: Cory De La O/Other Patient Handouts: High Blood Sugar (Hyperglycemia), Hypoglycemia (Low Blood Sugar), Managing Type 2 Diabetes, A1C Admission Data Admit Date/Time: 12/28/20 23:35 Attending Provider: Cory Colon Admit Provider: Jesu Ash Primary Care Provider: Eddi Ruff Other Providers: Jesu Ash ; Jose Malone Other Interventions: Discharge Summary Assessment (RN) Last Done: 12/29/20 16:54 Coding Level of Care Code 81158 OBS Care - Discharge Diagnoses Dysphagia R13.10 Abnormal EKG R94.31 CAD (coronary artery disease) I25.10 Associated angina: without angina Coronary Disease-Associated Artery/Lesion type: unspecified vessel or lesion type [place] vs. transplanted heart: [place] heart Acute epigastric pain R10.13 HLD (hyperlipidemia) E78.5 Diabetes E11.9 COPD (chronic obstructive pulmonary disease) J44.9 COPD type: unspecified COPD AF (atrial fibrillation) I48.91 HTN (hypertension) I10
== END 2020-12-29 17:50 | disposition home or self-care (01) ==
LOC: ED 19:40 → 2S 19:40 → SUATTDRO 23:35 → 2S 12-29 00:06
DX: Z79.82 Long term (current) use of aspirin; I10 Essential (primary) hypertension; E11.9 Type 2 diabetes mellitus without complications; Z79.899 Other long term (current) drug therapy; R10.13 Epigastric pain; R94.31 Abnormal electrocardiogram [ECG] [EKG]; Z87.891 Personal history of nicotine dependence; I25.10 Atherosclerotic heart disease of native coronary artery without angina pectoris; R13.10 Dysphagia, unspecified; E78.5 Hyperlipidemia, unspecified; I48.91 Unspecified atrial fibrillation; Z79.01 Long term (current) use of anticoagulants; Z79.84 Long term (current) use of oral hypoglycemic drugs; J44.9 Chronic obstructive pulmonary disease, unspecified

== ENCOUNTER 2022-04-27 01:30 | Inpatient (IN) ==
--- NOTE | 2022-04-27 03:04 | Emergency Department Note ---
History of Present Illness General Chief complaint: Fall Stated complaint: MULTIPLE FALLS TODAY Time Seen by Provider: 04/27/22 01:51 Source: patient and family Mode of arrival: EMS Limitations: no limitations History of Present Illness Provider complaint: fall This is an 89-year-old male who presents after a fall this evening. Patient lives at home by himself. States his left leg gave out due to knee pain. He states he typically does not use any assistive ambulatory device. He states he went to stand up out of bed and the knee gave out from under him. He states he did not hit his head or lose consciousness. He denies any prodromal dizziness, weakness, or other symptoms to suggest syncope. He denies any recent fevers, chills, or illness. Denies any change in diet or medications. He then goes on to state he actually fell 3 times today. Family states they were unaware of this until arrival here and further questioning. Family is concerned about the safety of him living at home by himself at this point in time. Home Medications Medication Instructions Recorded Confirmed Type multivitamin 1 tab PO DAILY 04/11/18 04/27/22 History nitroglycerin 0.4 mg sublingual 0.4 mg sublingual DIRECTED PRN 04/11/18 04/27/22 History tablet Chest Pain calcium carbonate 600 mg-vitamin 1 tab PO DAILY 01/14/19 04/27/22 History D3 10 mcg (400 unit) tablet (Calcium 600 + D(3)) vitamin E (dl, acetate) 180 mg 400 units PO DAILY 01/14/19 04/27/22 History (400 unit) capsule ascorbic acid (vitamin C) 500 mg 500 mg PO DAILY 04/22/19 04/27/22 History tablet aspirin 81 mg tablet,delayed 81 mg PO DAILY #30 tabs 04/22/19 04/27/22 History release niacin 250 mg capsule,extended 250 mg PO DAILY 04/22/19 04/27/22 History release felodipine 2.5 mg tablet,extended 2.5 mg PO BID #180 tabs 12/20/19 04/27/22 Rx release 24 hr lactobacillus combination no.8 3 3,000 mmu cells PO BID 4 weeks #56 11/11/20 04/27/22 Rx billion cell capsule (Adult caps Probiotic) atorvastatin 40 mg tablet 40 mg PO QPM #30 tabs 01/13/21 04/27/22 Rx metoprolol tartrate 25 mg tablet 37.5 mg PO BID 30 days #60 tabs 01/13/21 04/27/22 Rx warfarin 5 mg tablet 5 mg PO .COMPLEX 30 days #30 tabs 01/13/21 04/27/22 Rx triamcinolone acetonide 0.1 % 1 applic topical BID PRN Rash #30 03/26/21 04/27/22 Rx topical cream grams ipratropium 20 mcg-albuterol 100 1 puff inhalation Q6H PRN 10/16/21 04/27/22 Rx mcg/actuation mist for inhalation shortness of breath or wheezing 90 days #12 grams metformin 500 mg 24 hr 500 mg PO DAILY #90 tabs 11/16/21 04/27/22 Rx tablet,extended release terazosin 10 mg capsule 10 mg PO HS #90 caps 11/16/21 04/27/22 Rx finasteride 5 mg tablet 5 mg PO DAILY #90 tabs 12/01/21 04/27/22 Rx tiotropium bromide 2.5 2 puff inhalation DAILY 90 days 03/25/22 04/27/22 Rx mcg/actuation mist for inhalation #12 grams (Spiriva Respimat) Allergies Allergy/AdvReac Type Severity Reaction Status Date / Time No Known Allergies Allergy Unknown Verified 04/27/22 02:38 Past Med/Surg History Medical History Acute electrocardiogram changes Arthritis Chest pain COPD exacerbation Cough Diverticulosis of colon H/O prostate cancer History of adenomatous polyp of colon Impaired fasting glucose MA (myocardial infarction) Pneumonia Sepsis Vomiting Surgical History H/O cardiac catheterization History of heart artery stent Family History Other Myocardial infarction No pertinent family history Denies family history of Ovarian cancer Prostate cancer Breast cancer Colorectal cancer Social History Smoking Status: Former smoker Tobacco Type: Cigarettes Second Hand Exposure: No; Hx Alcohol Use: No Hx Substance Use: No Preferred Language: [place] Communication Ability: Effective Visual Impairment: No Limitations Hearing Ability: Normal [employer] Required: No Beliefs That Will Affect Care: None marital status: / Current Living Situation: Alone current occupational status: retired How many Children do You have: 2 Feels Safe at Home: Yes Childhood Exposure to Second-Hand Smoke: Yes caffeine: Yes Dental Care, Regularly: Yes Physical Activity Frequency: 3-4 Times per Week Seatbelt Use: always Sunscreen Use: Yes Assistive Devices: Denture - Upper, Denture - Lower, Glasses, Hearing Aid - Bilateral and Hearing Aid - Left Review of Systems A total of 10 systems reviewed and were otherwise negative All systems reviewed & are unremarkable except as noted in HPI & below Physical Exam Vital Signs Vital Signs - 24 hr 04/27/22 01:36 04/27/22 03:25 Temperature 36.8 C Temperature Source Oral Pulse Rate 66 Pulse Rate [Apical] 68 Respiratory Rate 17 18 Respiratory Effort / Characteristics Non-Labored Blood Pressure 163/98 H Blood Pressure [Left Arm] 177/100 H Blood Pressure Mean 119 Blood Pressure Mean [Left Arm] 125 Pulse Oximetry 96 98 Oxygen Delivery Method Room Air Room Air Sepsis Recent Fever Within 48 Hours No Sepsis New/Unexplained Change in Mental Status N/A Sepsis Action Taken by Nursing No Action Required GENERAL: alert, well appearing, well nourished, no distress, non-toxic HEAD: nc/at, no griffith signs, no raccoon eyes EYE EXAM: normal conjunctiva, PERRL and EOM's grossly intact OROPHARYNX: no exudate, no erythema, lips, buccal mucosa, and tongue normal and mucous membranes are moist NECK: supple, no nuchal rigidity, no adenopathy, non-tender LUNGS: Clear to auscultation. Normal chest wall mechanics, no w/r/r HEART: no murmurs, S1 normal and S2 normal ABDOMEN: abdomen soft, non-tender, normo-active bowel sounds, no masses, no rebound or guarding. BACK: Back is symmetrical on inspection and there is no deformity, no midline tenderness, no CVA tenderness. SKIN: no rashes and no bruising UPPER EXTREMITIES: upper extremities are grossly normal. FROM, nml pulses b/l. LOWER EXTREMITIES: No pitting edema. FROM, nml pulses b/l. No joint effusions. No bony tenderness with palpation. No evidence of trauma NEURO EXAM: Normal sensorium, cranial nerves II-XII grossly intact, normal speech, no gross weakness of arms, no gross weakness of legs. Gross sensation intact. Medical Decision Making Differential Diagnosis Differential Diagnosis includes but is not limited to dehydration, stroke, anemia, hypoglycemia, hyponatremia, hypernatremia, urinary tract infection, pneumonia, bronchitis, sepsis, gastroenteritis, additional abdominal pathology, metabolic abnormalities and infections. Medical Records Attestation: I reviewed the patient's medical records. Home Medications Current Medication List: was personally reviewed by me Laboratory Data Attestation: I reviewed the patient's lab results. Result diagrams: 04/27/22 03:26 04/27/22 03:26 Lab Results 04/27/22 04/27/22 04/27/22 Range/Units 03:21 03:26 03:26 WBC 9.51 (4.8-10.8) K/ul RBC 3.83 L (4.63-6.08) M/uL Hgb 11.9 L (14.0-18.0) g/dl Hct 35.3 L (40.1-51.0) % MCV 92.2 (80.0-100.0) fL MCH 31.1 (25.0-34.0) pg MCHC 33.7 (32.0-36.0) g/dL RDW Std Deviation 45.6 (36.4-46.3) fL RDW Coeff of Isela 13.4 (11.5-14.5) % Plt Count 141 (130-400) K/uL MPV 11.1 (9.4-12.4) fL Immature Gran % (Auto) 0.2 % Neut % (Auto) 59.2 % Lymph % (Auto) 31.0 % [place] % (Auto) 8.9 % Eos % (Auto) 0.1 % Baso % (Auto) 0.6 % Neut # (Auto) 5.62 (1.4-6.5) K/uL Lymph # (Auto) 2.95 (1.2-3.4) K/uL [place] # (Auto) 0.85 H (0.24-0.82) K/uL Eos # (Auto) 0.01 (0-0.50) K/uL Baso # (Auto) 0.06 (0-0.2) K/uL Immature Gran # (Auto) 0.02 (0.00-0.02) K/uL Platelet Estimate Normal (Normal) PT (9.0-12.0) Seconds INR (0.9-1.1) Sodium 137 (136-145) mmol/L Potassium 4.4 (3.5-5.1) mmol/L Chloride 104 (98-107) mmol/L Carbon Dioxide 24 (21-32) mmol/L Anion Gap 9 (3-11) BUN 16 (6-23) mg/dl Creatinine 0.93 (0.6-1.4) mg/dl Est Cr Clr Drug Dosing 61.3 ml/min Est GFR ( Amer) 84.1 ml/min Est GFR (Non-Af Amer) 72.5 ml/min BUN/Creatinine Ratio 17.2 (10-20) Glucose 136 H (70-99(Fasting)) mg/dl Calcium 9.1 (8.5-10.1) mg/dl Total Bilirubin 0.6 (0.2-1.0) mg/dl AST 26 (13-39) U/L ALT 24 (7-52) U/L Alkaline Phosphatase 53 (34-104) U/L Total Protein 6.8 (6.0-8.3) gm/dl Albumin 4.0 (3.4-5.0) gm/dl Globulin 2.8 (2.5-4.0) gm/dl Albumin/Globulin Ratio 1.4 (0.9-2) SARS-CoV-2, RNA, NAAT NEGATIVE (NEGATIVE) 04/27/22 Range/Units 03:26 WBC (4.8-10.8) K/ul RBC (4.63-6.08) M/uL Hgb (14.0-18.0) g/dl Hct (40.1-51.0) % MCV (80.0-100.0) fL MCH (25.0-34.0) pg MCHC (32.0-36.0) g/dL RDW Std Deviation (36.4-46.3) fL RDW Coeff of Isela (11.5-14.5) % Plt Count (130-400) K/uL MPV (9.4-12.4) fL Immature Gran % (Auto) % Neut % (Auto) % Lymph % (Auto) % [place] % (Auto) % Eos % (Auto) % Baso % (Auto) % Neut # (Auto) (1.4-6.5) K/uL Lymph # (Auto) (1.2-3.4) K/uL [place] # (Auto) (0.24-0.82) K/uL Eos # (Auto) (0-0.50) K/uL Baso # (Auto) (0-0.2) K/uL Immature Gran # (Auto) (0.00-0.02) K/uL Platelet Estimate (Normal) PT 21.8 H (9.0-12.0) Seconds INR 2.1 H (0.9-1.1) Sodium (136-145) mmol/L Potassium (3.5-5.1) mmol/L Chloride (98-107) mmol/L Carbon Dioxide (21-32) mmol/L Anion Gap (3-11) BUN (6-23) mg/dl Creatinine (0.6-1.4) mg/dl Est Cr Clr Drug Dosing ml/min Est GFR ( Amer) ml/min Est GFR (Non-Af Amer) ml/min BUN/Creatinine Ratio (10-20) Glucose (70-99(Fasting)) mg/dl Calcium (8.5-10.1) mg/dl Total Bilirubin (0.2-1.0) mg/dl AST (13-39) U/L ALT (7-52) U/L Alkaline Phosphatase (34-104) U/L Total Protein (6.0-8.3) gm/dl Albumin (3.4-5.0) gm/dl Globulin (2.5-4.0) gm/dl Albumin/Globulin Ratio (0.9-2) SARS-CoV-2, RNA, NAAT (NEGATIVE) Imaging Data Attestation: I personally reviewed and interpreted this imaging study as follows: My Impression: x-ray left knee: No acute fracture or dislocation X-ray left hip/pelvis: No acute fracture or dislocation ECG Data Attestation: I personally reviewed and interpreted this ECG as follows: Indication: + weakness Rate (beats per minute): 72 Rhythm: + normal sinus ECG Intervals/blocks: + Normal QRS and + Normal QT ECG [place]: + Normal ECG ST segments: + Nonspecific ST abnormalities MDM Narrative An order was placed for continuous cardiac monitoring. The monitor shows a rate of _78_ with _normal sinus__ rhythm. This is an 89-year-old male brought in due to concern for recurrent falls today. Patient does live at home alone. He complains of left leg weakness due to sev ere left knee pain. X-rays reassuring, however patient unable to walk to the bathroom even with an assist. Patient had no other concerns or complaints at bedside. He is anticoagulated due to history of atrial fibrillation. After additional discussion with family at bedside and investigation into patient's options based on insurance, case discussed with hospitalist for additional evaluation and management. Basic labs and EKG were performed as a precaution. I have a low suspicion for any additional occult traumatic injury at this time as patient has no complaints or concerns and no other evolving symptoms. No other evidence of significant trauma noted on exam. Impression & Plan Weakness, Knee pain, left, Fall Discharge Plan Visit Data Chief Complaint: Fall Stated Complaint: MULTIPLE FALLS TODAY ED Provider: Rina Whalen Discharge Problem: Weakness, Knee pain, left, Fall Patient Disposition: Admitted As Inpatient Discharge Instructions Interventions: ED Discharge Assessment Last Done: 04/27/22 04:40
[2022-04-27 03:50] LABS: INR 2.1 (0.9-1.1); Prothrombin Time 21.8 Seconds (9.0-12.0)
[2022-04-27 04:01] LABS: Albumin Globulin Ratio 1.4 (0.9-2); BUN Creatinine Ratio 17.2 (10-20); Bilirubin,Total 0.6 mg/dl (0.2-1.0); Calcium 9.1 mg/dl (8.5-10.1); Creatinine Clr Calc Pharmacy 61.3 ml/min; Est GFR (African American) 84.1 ml/min; Est GFR (Non-African American) 72.5 ml/min; Globulin 2.8 gm/dl (2.5-4.0); Potassium 4.4 mmol/L (3.5-5.1); Total Protein 6.8 gm/dl (6.0-8.3)
--- NOTE | 2022-04-27 04:08 | History & Physical Report ---
Date of Service April 27, 2022 Assessment & Plan (1) Frequent falls: Plan: 89 yo male presents from home after multiple falls. Patient reports his falls are secondary to his arthritis pain and instability. No syncope, LOC or head trauma. Patient presently lives alone in a single story home. -Observation to medical -Fall precautions -PT/OT evaluation (2) COPD (chronic obstructive pulmonary disease): Plan: No cough, SOB or wheeze -Continue Tiotropium -Continue Ipratropium/Albuterol PRN (3) CAD (coronary artery disease): Plan: Chronic. Stable. Patient denies chest pain. -Continue ASA 81mg po daily -Continue Atorvastatin 40mg po daily -Continue metoprolol 37.5mg po BID -Continue Niacin (4) Diabetes: Plan: Chronic. Well controlled. Last [id number]=4.4 -Hold Metformin -Lantus 5u BID -ISS (5) HLD (hyperlipidemia): Plan: Chronic. -Continue Atorvastatin (6) HTN (hypertension): Plan: Chronic. Well controlled -Continue Metoprolol -Monitor (7) AF (atrial fibrillation): Plan: Rate controlled -Continue Coumadin -Continue Metoprolol History of Present Illness Chief Complaint: frequent falls Primary Care Provider: Eddi Ruff DO Eddie Hassan is an 89yo male with history of DM, HTN, HLP, CAD, COPD and AF on Coumadin anticoagulation presenting from home with frequent falls. Patient reports falling 3 times today. After the third fall he was unable to get up and called his family for assistance. He denies chest pain, palpitations, weakness or syncope. No LOC. 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 He did not hit his head. Family was unaware that the patient was having a difficult time ambulating. He presently lives alone in a single story home. He does not use a cane or walker. Family is requesting that he be assessed for rehabilitation needs. Patient has no additional complaints at this time. Allergies Allergy/AdvReac Type Severity Reaction Status Date / Time No Known Allergies Allergy Unknown Verified 04/27/22 02:38 Home Medications Medication Instructions Recorded Confirmed Type multivitamin 1 tab PO DAILY 04/11/18 04/27/22 History nitroglycerin 0.4 mg sublingual 0.4 mg sublingual DIRECTED PRN 04/11/18 04/27/22 History tablet Chest Pain calcium carbonate 600 mg-vitamin 1 tab PO DAILY 01/14/19 04/27/22 History D3 10 mcg (400 unit) tablet (Calcium 600 + D(3)) vitamin E (dl, acetate) 180 mg 400 units PO DAILY 01/14/19 04/27/22 History (400 unit) capsule ascorbic acid (vitamin C) 500 mg 500 mg PO DAILY 04/22/19 04/27/22 History tablet aspirin 81 mg tablet,delayed 81 mg PO DAILY #30 tabs 04/22/19 04/27/22 History release niacin 250 mg capsule,extended 250 mg PO DAILY 04/22/19 04/27/22 History release felodipine 2.5 mg tablet,extended 2.5 mg PO BID #180 tabs 12/20/19 04/27/22 Rx release 24 hr lactobacillus combination no.8 3 3,000 mmu cells PO BID 4 weeks #56 11/11/20 04/27/22 Rx billion cell capsule (Adult caps Probiotic) atorvastatin 40 mg tablet 40 mg PO QPM #30 tabs 01/13/21 04/27/22 Rx metoprolol tartrate 25 mg tablet 37.5 mg PO BID 30 days #60 tabs 01/13/21 04/27/22 Rx warfarin 5 mg tablet 5 mg PO .COMPLEX 30 days #30 tabs 01/13/21 04/27/22 Rx triamcinolone acetonide 0.1 % 1 applic topical BID PRN Rash #30 03/26/21 04/27/22 Rx topical cream grams ipratropium 20 mcg-albuterol 100 1 puff inhalation Q6H PRN 10/16/21 04/27/22 Rx mcg/actuation mist for inhalation shortness of breath or wheezing 90 days #12 grams metformin 500 mg 24 hr 500 mg PO DAILY #90 tabs 11/16/21 04/27/22 Rx tablet,extended release terazosin 10 mg capsule 10 mg PO HS #90 caps 11/16/21 04/27/22 Rx finasteride 5 mg tablet 5 mg PO DAILY #90 tabs 12/01/21 04/27/22 Rx tiotropium bromide 2.5 2 puff inhalation DAILY 90 days 03/25/22 04/27/22 Rx mcg/actuation mist for inhalation #12 grams (Spiriva Respimat) Past Med/Surg History Medical History Acute electrocardiogram changes Arthritis Chest pain COPD exacerbation Cough Diverticulosis of colon H/O prostate cancer History of adenomatous polyp of colon Impaired fasting glucose TN (myocardial infarction) Pneumonia Sepsis Vomiting Surgical History H/O cardiac catheterization History of heart artery stent Family History Other Myocardial infarction No pertinent family history Denies family history of Ovarian cancer Prostate cancer Breast cancer Colorectal cancer Social History Smoking Status: Never smoker Tobacco Type: Cigarettes Second Hand Exposure: No; Hx Alcohol Use: No Hx Substance Use: No Preferred Language: Citizen Of [place] Communication Ability: Effective Visual Impairment: No Limitations Hearing Ability: Normal Billet Inspector Required: No Beliefs That Will Affect Care: None marital status: / Current Living Situation: Alone current occupational status: retired How many Children do You have: 2 Feels Safe at Home: Yes Childhood Exposure to Second-Hand Smoke: Yes caffeine: Yes Dental Care, Regularly: Yes Physical Activity Frequency: 3-4 Times per Week Seatbelt Use: always Sunscreen Use: Yes Assistive Devices: Denture - Upper, Denture - Lower, Glasses and Hearing Aid - Bilateral Review of Systems Review of Systems: All systems reviewed & are unremarkable except as noted in HPI & below Physical Exam Physical Exam: General: patient resting comfortably, NAD, non-toxic in appearance, AA&O x 4, hard of hearing Skin: warm, dry, intact, no rashes or lesions HEENT: NC/AT, PERRL, EOMI, anicteric sclera, conjunctiva without injection, external ear normal to inspection and nontender, nares patent, moist mucus membranes, dentition intact, no oropharyngeal lesions, neck supple, trachea midline, no LAD, no thyromegaly, no JVD Heart: +S1/S2, irregularly irregular, no m/r/g Lungs: equal air entry bilaterally, no rales/rhonchi/wheezes Abd: +BS, soft, NT/ND, no masses/organomegaly/ascites Ext: warm, 2+ pulses in UE/LE bilaterally, no clubbing/cyanosis or edema Neuro: nonfocal, patient AA&O x 4, speech intact, no facial droop, moving all extremities on command with equal strength 5/5 Results & Data Results & Data ([facility]) Vital Signs (Past 12 Hours) Vital Signs Temp Pulse Pulse Resp BP BP Pulse Ox 04/27/22 03:25 68 18 177/100 H 98 04/27/22 01:36 36.8 C 66 17 163/98 H 96 O2 Del Method 04/27/22 03:25 Room Air 04/27/22 01:36 Room Air Laboratory Results Laboratory Results PT 21.8 Seconds (9.0-12.0) H 04/27/22 03:26 INR 2.1 (0.9-1.1) H 04/27/22 03:26 Sodium 137 mmol/L (136-145) 04/27/22 03:26 Potassium 4.4 mmol/L (3.5-5.1) 04/27/22 03:26 Chloride 104 mmol/L (98-107) 04/27/22 03:26 Carbon Dioxide 24 mmol/L (21-32) 04/27/22 03:26 Anion Gap 9 (3-11) 04/27/22 03:26 BUN 16 mg/dl (6-23) 04/27/22 03:26 Creatinine 0.93 mg/dl (0.6-1.4) 04/27/22 03:26 Est Cr Clr Drug Dosing 61.3 ml/min 04/27/22 03:26 Est GFR ( Amer) 84.1 ml/min 04/27/22 03:26 Est GFR (Non-Af Amer) 72.5 ml/min 04/27/22 03:26 BUN/Creatinine Ratio 17.2 (10-20) 04/27/22 03:26 Glucose 136 mg/dl (70-99(Fasting)) H 04/27/22 03:26 Calcium 9.1 mg/dl (8.5-10.1) 04/27/22 03:26 Total Bilirubin 0.6 mg/dl (0.2-1.0) 04/27/22 03:26 AST 26 U/L (13-39) 04/27/22 03:26 ALT 24 U/L (7-52) 04/27/22 03:26 Alkaline Phosphatase 53 U/L (34-104) 04/27/22 03:26 Total Protein 6.8 gm/dl (6.0-8.3) 04/27/22 03:26 Albumin 4.0 gm/dl (3.4-5.0) 04/27/22 03:26 Globulin 2.8 gm/dl (2.5-4.0) 04/27/22 03:26 Albumin/Globulin Ratio 1.4 (0.9-2) 04/27/22 03:26 SARS-CoV-2, RNA, NAAT NEGATIVE (NEGATIVE) 04/27/22 03:21 PG Care Time/CCT Total # of Minutes Spent Total Time Spent with Patient: Total time spent is greater than 50% in coordination of care (as documented) at patient's floor/unit and/or counseling patient: Coding Level of Care Code INT OBSERVATION CARE 50M LVL 2 Diagnoses Frequent falls R29.6 COPD (chronic obstructive pulmonary disease) J44.9 COPD type: unspecified COPD CAD (coronary artery disease) I25.10 Associated angina: without angina Coronary Disease-Associated Artery/Lesion type: unspecified vessel or lesion type [place] vs. transplanted heart: [place] heart Diabetes E11.9 HLD (hyperlipidemia) E78.5 HTN (hypertension) I10 AF (atrial fibrillation) I48.91 (1) COPD (chronic obstructive pulmonary disease) COPD type: unspecified COPD Qualified Code(s): J44.9 - Chronic obstructive pulmonary disease, unspecified (2) CAD (coronary artery disease) Associated angina: without angina Coronary Disease-Associated Artery/Lesion type: unspecified vessel or lesion type [place] vs. transplanted heart: [place] heart Qualified Code(s): I25.10 - Atherosclerotic heart disease of [place] coronary artery without angina pectoris
[2022-04-27 04:24] LABS: Hematocrit (blood only) 35.3 % (40.1-51.0); Hemoglobin 11.9 g/dl (14.0-18.0); Mean Corpuscular Hemoglobin 31.1 pg (25.0-34.0); Mean Corpuscular Hgb Conc 33.7 g/dL (32.0-36.0); Mean Corpuscular Volume 92.2 fL (80.0-100.0); Mean Platelet Volume 11.1 fL (9.4-12.4); Platelet Count 141 K/uL (130-400); RDW Coefficient of Variation 13.4 % (11.5-14.5); RDW Standard Deviation 45.6 fL (36.4-46.3); Red Blood Count 3.83 M/uL (4.63-6.08); White Blood Count 9.51 K/ul (4.8-10.8)
[2022-04-27 04:25] LABS: Basophils # (auto) 0.06 K/uL (0-0.2); Basophils % (auto) 0.6 %; Eosinophils # (auto) 0.01 K/uL (0-0.50); Eosinophils % (auto) 0.1 %; Immature Granulocytes # (auto) 0.02 K/uL (0.00-0.02); Immature Granulocytes % (auto) 0.2 %; Lymphocytes # (auto) 2.95 K/uL (1.2-3.4); Monocytes # (auto) 0.85 K/uL (0.24-0.82); Monocytes % (auto) 8.9 %; Neutrophils # (auto) 5.62 K/uL (1.4-6.5); Neutrophils % (auto) 59.2 %; Platelet Estimate Normal (Normal)
[2022-04-27] MEDS ORDERED: IPRATROPIUM BROMIDE/ALBUTEROL respimat INH INH PRN (05:38)
[2022-04-27] MEDS ORDERED: GLUCOSE 10 TAB/TUBE PO PRN (05:38)
[2022-04-27] MEDS ORDERED: ACETAMINOPHEN 325 MG TAB PO PRN (05:38)
[2022-04-27] MEDS ORDERED: ONDANSETRON INJ 2 MG/ML 2 ML VIAL IV PRN (05:38)
[2022-04-27] MEDS ORDERED: GLUCAGON FOR INJ 1 MG VIAL SQ PRN (05:38)
[2022-04-27] MEDS ORDERED: DEXTROSE 50% 50 ML SYRINGE IV PRN (05:38)
[2022-04-27] MEDS ORDERED: CARBOHYDRATES FOR HYPOGLYCEMIA PO PRN (05:38)
[2022-04-27] MEDS ORDERED: GLUCOSE 40% GEL 15 GM TUBE PO PRN (05:38)
[2022-04-27] MEDS ORDERED: Albuterol HFA 8 GM Inhaler (Combivent Respimat P&T Subs) INH PRN (06:16)
[2022-04-27] MEDS ORDERED: Ipratropium HFA Inhaler (Combivent Respimat P&T Subs) INH PRN (06:17)
[2022-04-27] MEDS ORDERED: ASPIRIN 81 MG ECTAB PO SCH (09:00)
[2022-04-27] MEDS ORDERED: METOPROLOL TARTRATE 25 MG TAB PO SCH (09:00)
[2022-04-27] MEDS ORDERED: FELODIPINE 2.5 MG TABCR PO SCH (09:00)
[2022-04-27] MEDS ORDERED: LANTUS PER UNIT CHARGE SQ SCH (09:00)
[2022-04-27] MEDS ORDERED: FINASTERIDE 5 MG TAB PO SCH (09:00)
[2022-04-27] MEDS ORDERED: PNEUMOCOCCAL POLYSACCHARIDES 25 MCG/0.5 ML VIAL/SYR IM ONE (09:00)
[2022-04-27] MEDS ORDERED: INFLUENZA VACCINE HIGH DOSE PF 65+ 0.7 ML SYR IM ONE (09:00)
[2022-04-27] MEDS ORDERED: UMECLIDINIUM BROMIDE 62.5MCG/BLISTER 7 PUFFS/INHALER INH SCH (09:00)
[2022-04-27] MEDS: INSULIN ASPART PER UNIT SC SCH ×2 (09:12→12:58)
--- NOTE | 2022-04-27 09:26 | XRay Report ---
XR knee LT 1 or 2V routine CLINICAL HISTORY: fall TECHNIQUE: 2 views of the left knee were obtained. Comparison: Comparison is made to knee radiographs 12/25/2014 FINDINGS: There is no evidence of an acute fracture. Degenerative changes are seen in the knee joint most promi nently in the medial compartment. No definite evidence for effusion, evaluation for effusion is limit ed by lack of true lateral view. No soft tissue abnormality is seen. IMPRESSION: Degenerative changes without evidence of acute injury. ACT 112: Negative or not required by law. Electronically signed by: Cory Machado M.D. 04/27/2022 9:25 AM
--- NOTE | 2022-04-27 09:28 | XRay Report ---
XR hip LT 2V w pelvis CLINICAL HISTORY: fall TECHNIQUE: 2 views of the left hip and single frontal view of the pelvis were obtained. Comparison: None available at the time of this dictation. FINDINGS: There is no evidence of an acute fracture. Degenerative changes are seen in the hip joint with osteop hyte formation and mild joint space narrowing and subchondral sclerosis. Vascular calcifications are noted. IMPRESSION: Degenerative changes without evidence of acute abnormality. ACT 112: Negative or not required by law. Electronically signed by: Cory Machado M.D. 04/27/2022 9:26 AM
--- NOTE | 2022-04-27 12:34 | History & Physical Bridge Note ---
Date of Service April 27, 2022 History & Physical Bridge Note I have examined the patient, reviewed the History & Physical and in the interval since the performance of the History & Physical I have noted the following changes of clinical significance: no changes noted Patient seen on daily rounds this morning. Hospitalized early this morning due to sustaining frequent falls at home. Lives alone. Family requested he be evaluated for rehab needs. He is presently resting in bed, offers no complaints. Denies cp, dyspnea, n/v/d, f/c, headache, or gu symptoms. Denies any injury during as a result of his falls. No LOC. Labs unremarkable. INR therapeutic at 2.1. On exam, VSS, NAD, lungs are clear, heart is regular, abdomen benign with normoactive BS, legs w/o edema. He is awaiting PT/OT eval. Discussed with case management that we anticipate patient at minimum needs acute short term rehab but will have to wait for formal therapy notes. No changes made to plan that was initiated by admitting team. Plan d/w Dr. Juarez.
--- NOTE | 2022-04-27 13:58 | CT Scan Report ---
CT head/brain wo con CLINICAL HISTORY: 89 years-old Male with confusion s/p falls, on coumadin. Acute head injury status post fall TECHNIQUE: Multiple axial CT images of the head were obtained without contrast. A dose lowering tech nique was utilized adhering to the principles of ALARA. CT DOSE: 691.05 mGy.cm COMPARISON: Head CT 05/19/2018 FINDINGS: Large acute right-sided subdural hematoma measures up to 4.1 cm causing considerable mass effect upon the right cerebral hemisphere. This partially effaces the right lateral ventricle resulting in 1.2 c m of leftward midline shift. Trace acute subdural hemorrhage layers along the falx cerebri. Cerebral vascular calcifications. Age-related involutional changes with chronic microvascular ischemic disease . The study is motion degraded. No intracranial mass, hydrocephalus or acute territorial infarct iden tified. The calvarium is intact. Mastoid air cells are clear. There is mild mucosal thickening of the left s phenoid sinus. IMPRESSION: 1. Large acute right-sided subdural hematoma results in considerable mass effect upon the right cereb ral hemisphere with subfalcine herniation resulting in 1.2 cm leftward midline shift. Additional trac e acute subdural hematoma layers along the falx cerebri. 2. No acute calvarial fracture identified. Findings were discussed with Dr. Lozada on 04/27/2022 at 1:55 PM. ACT 112: Negative or not required by law. The above report was generated using voice recognition software. It may contain grammatical, syntax o r spelling errors. Electronically signed by: Jey Louie M.D. 04/27/2022 1:57 PM
[2022-04-27] MEDS ORDERED: DC ALL ANTICOAGULANTS STA (14:03)
[2022-04-27] MEDS ORDERED: PROTHROMBIN COMP KCENTRA IV STA (14:03)
[2022-04-27] MEDS ORDERED: hydrALAZINE HCL 20 MG/ML VIAL IV STA (14:07)
[2022-04-27] MEDS ORDERED: PHYTONADIONE 10 MG in DEXTROSE 5% 50 ML IV ONE (14:15)
[2022-04-27] MEDS ORDERED: LORazepam 0.5 MG in SYRINGE 0 ML IV PRN (14:26)
[2022-04-27] MEDS ORDERED: MoRPHine SULFATE 2 MG/ML CARP IV PRN (14:26)
[2022-04-27] MEDS ORDERED: GLYCOPYRROLATE 0.2 MG/ML VIAL IV PRN (14:26)
--- NOTE | 2022-04-27 14:36 | Electrocardiogram Report ---
Test Reason : Blood Pressure : / mmHG Vent. Rate : 072 BPM Atrial Rate : 072 BPM P-R Int : 158 ms QRS Dur : 090 ms QT Int : 406 ms P-R-T Axes : -12 014 088 degrees QTc Int : 444 ms Poor data quality, interpretation may be adversely affected Normal sinus rhythm Possible Old Inferior infarct (cited on or before 19-APR-2021) Abnormal ECG When compared with ECG of 19-APR-2021 20:17, Premature ventricular complexes are no longer Present Confirmed by Alex Zhong ([id number]) on 04/27/2022 2:36:28 PM Referred By: REFERRED SELF Confirmed By:Alex Zhong
[2022-04-27 15:04] LABS: Fibrinogen 345 mg/dl (184-400); INR 1.8 (0.9-1.1); Partial Thromboplastin Ratio 1.2
--- NOTE | 2022-04-27 15:43 | Communication Note ---
Date of Service: April 27, 2022 Notified by RN shortly after lunch that patient's daughter notified her that patient was now slightly confused and was acting sleepy. Given his recurrent falls at home and his anticoagulated status on Coumadin, I ordered a stat head CT w/o contrast as one had not been performed in the ER. I was informed by radiologist that patient's head CT demonstrated a large SDH with 1.2cm midline shift. I ordered Kcentra based on literature recommendations as well as a dose of Vitamin K 10mg IV x1. I also ordered a Hydralazine 10mg IV x1 to reduce BP (last BP recorded as 156/67). I contacted the patient's son and daughter to explain the situation and offer possible treatment options. Patient's son verbalized that he has the advanced directive for his father which clearly stated that he did not want surgical intervention, blood product transfusion, or heroic measures in form of CPR/defibrillation, intubation, or mechanical ventilation. The family requests that he be kept comfortable. Subsequently, I cancelled the Kcentra and Vitamin K and changed his code status in the computer to reflect those wishes. I went up to assess patient at the bedside, he is lethargic and slightly confused but is not obtunded. He did squeeze my hand during my visit. I have initiated palliative care orders including supplemental O2, NPO diet, geiger insertion, IV morphine, ativan, and glycopyrrolate. Pt will be moved to private room. Dr. Juarez has been informed on aforementioned and plan.
[2022-04-27] MEDS ORDERED: WARFARIN SOD 2.5 MG TAB PO SCH (16:00)
[2022-04-27] MEDS ORDERED: TERAZOSIN HCL 5 MG CAP PO SCH (21:00)
[2022-04-27] MEDS ORDERED: ATORVASTATIN 40 MG TAB PO SCH (21:00)
[2022-04-28 08:17] LABS: Hematocrit (blood only) 35.5 % (40.1-51.0); Hemoglobin 11.8 g/dl (14.0-18.0); Mean Corpuscular Hemoglobin 30.4 pg (25.0-34.0); Mean Corpuscular Hgb Conc 33.2 g/dL (32.0-36.0); Mean Corpuscular Volume 91.5 fL (80.0-100.0); Mean Platelet Volume 11.4 fL (9.4-12.4); Platelet Count 142 K/uL (130-400); RDW Coefficient of Variation 13.8 % (11.5-14.5); RDW Standard Deviation 46.5 fL (36.4-46.3); Red Blood Count 3.88 M/uL (4.63-6.08); White Blood Count 10.89 K/ul (4.8-10.8)
[2022-04-28 08:34] LABS: BUN Creatinine Ratio 17.5 (10-20); Creatinine Clr Calc Pharmacy 71.1 ml/min; Est GFR (African American) 91.8 ml/min; Est GFR (Non-African American) 79.2 ml/min; Potassium 3.8 mmol/L (3.5-5.1)
--- NOTE | 2022-04-28 11:39 | Hospitalist Progress Note ---
Date of Service April 28, 2022 Assessment & Plan (1) Subdural hematoma, post-traumatic: (2) Weakness: (3) Bicuspid aortic valve: (4) Former smoker: (5) COPD (chronic obstructive pulmonary disease): (6) CAD (coronary artery disease): (7) Diabetes: (8) HTN (hypertension): (9) AF (atrial fibrillation): Plan Attending: Dr. Juarez Impression: This is an 89-year-old male who had no prior history of follow-up prior to the last 7 days per discussion with family. Patient then had a fall and it was noticed he had more frequent falls. He is brought to the emergency department for evaluation and found to have a large subdural hematoma on the right with 1.2 cm midline shift. Patient was anticoagulated and there was concern that this would expand. After discussion with family it was determined the patient would be made comfort measures only and family was told that he could have hours to 1 or 2 days to live. Today: The patient is awake and alert. He is eating. He denies any acute complaints such as chest pain or tightness. He has no headache. He denies any visual changes. He has no other acute complaints of pain. He is confused but able to follow simple instructions. Recommendations: Discussed the case with the patient's daughter Nunu. She is coming in early this afternoon. At this time is unclear how the patient will do. I am wondering if maybe the patient had a single fall at home developed a hematoma and that led to imbalance and muscular coordination issues resulting in further falls prior to admission. Although it is assumed that the patient's subdural hematoma occurred yesterday I am wondering if he had a previous subdural from falling at home and not reporting it and if this is stabilized. We will request PT OT consult and evaluation. We will also request speech-language pathology to assess for eating and aids for utensils. Patient's daughter is coming in early afternoon. If she feels that he is stable or showing some improvement, we will repeat the CT scan after 1 PM to look for change to help guide care plan. The meantime, family has indicated that if he should require short-term placement that they would prefer [facility] first, followed by [facility], followed by [facility]. Repeat CT Head with no changes from CT 24 hours prior. Patient continues to be awake and responsive. Long discussion with family including telephone conference with son Jesu in [place]. Will continue to monitor patient. I suggested that we remove from comfort measures only and resume checking vital signs so that we can control hypertension. Patient tolerating food at this time. If patient is stable tomorrow, consider palliative care consult to assist with care plan goals and disposition. All questions answered to the satisfaction of the family. Admission and Anticipated Discharge Date Admission Date: April 27, 2022 Subjective Attending: Dr. Juarez Patient is an 89-year-old male with a history of falls within the last several days. Prior to his initial fall he has not had any known falls within the last 12 months. Patient is anticoagulated. CT scan of the head showed a subdural bleed on the right which had sequela of a 1.2 cm midline shift. Case was discussed with family by care team yesterday and it was determined the patient should be placed on comfort measures only anticipating rapid decline due to his anticoagulation status. Over the last 24 hours, patient continues to be awake and alert. He does have some periods of confusion but was responsive and appropriate to the nurse this morning. He does not have any known aphasia. Patient does have significant left-sided weakness. He denies headache or visual changes. He is able to tell me he has a [facility] but does not know what facility this is regarding hospital versus detention versus home. He can give me the month and date of his birthdate but not his year. He is able to eat with assistance with no evidence of aspiration but does have coordination issues with eating. Patient denies any other acute complaints. He has no shortness of breath, chills, sweats, rigors. No slurred speech. He has no of chest pain, abdominal pain, nausea, vomiting, diarrhea. He has not been out of bed today as he is a maximum assist due to his left-sided weakness. He has no other acute complaints at this time. Review of Systems Review of Systems: A total of 10 systems was reviewed and is negative other than as listed in the HPI Physical Exam Physical Exam: GENERAL : No acute distress EYES: No icterus, gaze conjugatePERRL. NOSE: No evidence of epistaxis MOUTH: No lesions or candidiasis. Tongue is midline. Mucosa is moist. NECK: Supple LUNGS: CTA B/L, no wheezes, rales or rhonchi HEART: Regular, rate controlled ABDOMEN: Soft, NT, ND, BS Present EXTREMITIES: No LE edema, pedal pulses intact NEURO: Awake and alert with some confusion. No behavioral issues. He is pleasant and communicative. He is hard of hearing. Significant left-sided weakness. Strength is appropriate on the right side. Patient does move all 4 extremities spontaneously and to command. Patient has no facial droop or deviation of tongue. Pupils are equal round and reactive to light. Gait and Romberg are deferred. Results & Data Critical Care Results & Data Lab & Micro Results (Past 24 Hours) RBC 3.88 M/uL (4.63-6.08) L 04/28/22 WBC 10.89 K/ul (4.8-10.8) H 04/28/22 Hgb 11.8 g/dl (14.0-18.0) L 04/28/22 Hct 35.5 % (40.1-51.0) L 04/28/22 MCV 91.5 fL (80.0-100.0) 04/28/22 MCH 30.4 pg (25.0-34.0) 04/28/22 MCHC 33.2 g/dL (32.0-36.0) 04/28/22 RDW Standard Deviation 46.5 fL (36.4-46.3) H 04/28/22 RDW Coefficient of Variation 13.8 % (11.5-14.5) 04/28/22 Plt Count 142 K/uL (130-400) 04/28/22 MPV 11.4 fL (9.4-12.4) 04/28/22 Na 137 mmol/L (136-145) 04/28/22 K 3.8 mmol/L (3.5-5.1) 04/28/22 Cl 103 mmol/L (98-107) 04/28/22 CO2 27 mmol/L (21-32) 04/28/22 Anion Gap 7 (3-11) 04/28/22 BUN 14 mg/dl (6-23) 04/28/22 Creatinine 0.80 mg/dl (0.6-1.4) 04/28/22 Estimated GFR ( Amer) 91.8 ml/min 04/28/22 Estimated GFR (Non-Af Amer) 79.2 ml/min 04/28/22 BUN/Creatinine Ratio 17.5 (10-20) 04/28/22 Glu 131 mg/dl (70-99(Fasting)) H 04/28/22 Ca 9.0 mg/dl (8.5-10.1) 04/28/22 Calcium Level 9.0 mg/dl (8.5-10.1) 04/28/22 07:51 Diagnostic Findings (Past 24 Hours) Head CT 04/27/22 13:08 CT head/brain wo con CLINICAL HISTORY: 89 years-old Male with confusion s/p falls, on coumadin. Acute head injury status post fall TECHNIQUE: Multiple axial CT images of the head were obtained without contrast. A dose lowering technique was utilized adhering to the principles of ALARA. CT DOSE: 691.05 mGy.cm COMPARISON: Head CT 05/19/2018 FINDINGS: Large acute right-sided subdural hematoma measures up to 4.1 cm causing considerable mass effect upon the right cerebral hemisphere. This partially effaces the right lateral ventricle resulting in 1.2 cm of leftward midline shift. Trace acute subdural hemorrhage layers along the falx cerebri. Cerebral vascular calcifications. Age-related involutional changes with chronic microvascular ischemic disease. The study is motion degraded. No intracranial mass, hydrocephalus or acute territorial infarct identified. The calvarium is intact. Mastoid air cells are clear. There is mild mucosal thickening of the left sphenoid sinus. IMPRESSION: 1. Large acute right-sided subdural hematoma results in considerable mass effect upon the right cerebral hemisphere with subfalcine herniation resulting in 1.2 cm leftward midline shift. Additional trace acute subdural hematoma layers along the falx cerebri. 2. No acute calvarial fracture identified. Findings were discussed with Dr. Lozada on 04/27/2022 at 1:55 PM. ACT 112: Negative or not required by law. The above report was generated using voice recognition software. It may contain grammatical, syntax or spelling errors. Electronically signed by: Jey Louie M.D. 04/27/2022 1:57 PM I & O Totals 24 Hours 04/27/22 04/28/22 04/29/22 06:59 06:59 06:59 Intake Total 400 / 400 Output Total 2149 / 215 Balance -1 / -1 -1750 / -1750 Cumulative 04/27/22 01:16 thru 04/28/22 05:47 Intake Total 400 Output Total 2151 Balance -1751 RT Ventilator Mngmt (Last Documented) Ventilator Ordered Settings Respiratory Rate 16 04/27/22 13:29 Ventilator - PT Measurements Respiratory Rate 16 PG Care Time/CCT Total # of Minutes Spent Total Time Spent with Patient: Total time spent is greater than 50% in coordination of care (as documented) at patient's floor/unit and/or counseling patient: 30 minutes Prolonged Care Time A total of 120 minutes was spent with the patient and the family over three visits throughout the day. Greater than 60 minutes was spent in the patient room with the daughter and son-in-law during the first visit and then in addition with the grandson for the final visit that day Coding Level of Care Code 49177 Subseq Hosp Care Lvl 3 (25 - SIGNIFICANT, SEPARATELY IDENTIFIABLE ) Diagnoses Subdural hematoma, post-traumatic S06.5XAA Weakness R53.1 Bicuspid aortic valve Q23.1 Former smoker Z87.891 COPD (chronic obstructive pulmonary disease) J44.9 COPD type: unspecified COPD CAD (coronary artery disease) I25.10 Associated angina: without angina Coronary Disease-Associated Artery/Lesion type: unspecified vessel or lesion type [place] vs. transplanted heart: [place] heart Diabetes E11.9 HTN (hypertension) I10 AF (atrial fibrillation) I48.91 (1) CAD (coronary artery disease) Associated angina: without angina Coronary Disease-Associated Artery/Lesion type: unspecified vessel or lesion type [place] vs. transplanted heart: [place] heart Qualified Code(s): I25.10 - Atherosclerotic heart disease of [place] coronary artery without angina pectoris (2) COPD (chronic obstructive pulmonary disease) COPD type: unspecified COPD Qualified Code(s): J44.9 - Chronic obstructive pulmonary disease, unspecified
[2022-04-28] MEDS ORDERED: WARFARIN SOD 5 MG TAB PO SCH (16:00)
--- NOTE | 2022-04-28 16:04 | CT Scan Report ---
CT SCAN OF THE BRAIN WITHOUT IV CONTRAST CLINICAL HISTORY: Change in mental status. Follow-up subdural hemorrhage. COMPARISON STUDY: CT of the brain dated 04/27/2022 and 05/19/2018. TECHNIQUE: Unenhanced axial CT scan of the brain is performed from the vertex to the skull base. A do se lowering technique was utilized adhering to the principles of ALARA. CT DOSE: 614.27 mGy.cm FINDINGS: Brain parenchyma: Again seen is a large subdural hemorrhage along the right convexity. This measures up to 4.1 cm in diameter and effaces the subjacent cortical sulci. There is approximately 1 cm of rig ht-to-left midline shift. There is also trace pleural lumbar midline falx. Prominent extra-axial CSF along the left convexity is similar to 2018 examination. There is age-related involutional change not ing moderate subcortical and periventricular microangiopathic disease. No parenchymal hematoma is zakia ntified. There is no evidence of acute territorial ischemia by CT criteria. Sanchez-white matter differe ntiation is preserved. Ventricles, sulci, cisterns: Prominent secondary to involutional change. Intracranial vasculature: There is atherosclerotic calcification of the cavernous carotid and vertebr al arteries. Calvarium: Unremarkable. Sinuses and mastoids: There is mucosal thickening and secretions within the left sphenoid sinus. The remaining visualized paranasal sinuses are clear. The mastoid air cells are well pneumatized. Orbits: The bony orbits are grossly intact. IMPRESSION: 1. Again seen is a large subdural hemorrhage along the right convexity with effacement of the subjace nt cortical sulci and [id number] midline shift. This is similar in appearance to yesterday. 2. Trace subdural blood is again seen along the midline falx. 3. No parenchymal hematoma is identified and there is no evidence of acute territorial ischemia by CT criteria. ACT 112: Negative or not required by law. Electronically signed by: Liang Lynn M.D. 04/28/2022 4:03 PM
[2022-04-28] MEDS ORDERED: hydrALAZINE HCL 20 MG/ML VIAL IV STA (17:20)
[2022-04-28] MEDS: METOPROLOL TARTRATE 25 MG TAB PO SCH (20:53)
[2022-04-29] MEDS ORDERED: METOPROLOL TARTRATE 25 MG TAB PO ONE ×2 (00:07→06:18)
[2022-04-29] MEDS: hydrALAZINE HCL 20 MG/ML VIAL IV PRN ×3 (02:08→11:11)
[2022-04-29] MEDS ORDERED: METOPROLOL TARTRATE 1 MG/ML VIAL IV STA (04:04)
[2022-04-29] MEDS: METOPROLOL TARTRATE 25 MG TAB PO SCH ×2 (08:49→20:40)
--- NOTE | 2022-04-29 16:42 | Hospitalist Progress Note ---
Date of Service April 29, 2022 Assessment & Plan (1) Subdural hematoma, post-traumatic: Plan: Attending: Dr. Juarez Impression: This is an 89-year-old male who had no prior history of follow-up prior to the last 7 days per discussion with family. Patient then had a fall and it was noticed he had more frequent falls. He is brought to the emergency department for evaluation and found to have a large subdural hematoma on the right with 1.2 cm midline shift. Patient was anticoagulated and there was concern that this would expand. Anticoagulation was held. Patient was monitored overnight and showed improvement over the next day. 48 hours later the patient is doing well but continued left-sided weakness and some confusion. Patient without any acute complaints. Recommendations: Repeat CT scan of the head done [address] shows no evolution of the subdural hematoma. PT/OT evaluations completed. Patient appropriate for placement for hospice Will continue with passive range of motion exercises and event the patient has improvement Patient anticipated be discharged tomorrow to [facility]. Patient clearly does not want any intervention or heroics in the event of cardiopulmonary arrest Continue to focus on palliative care and treat known chronic medical conditions. (2) Weakness: Plan: Patient reports of multiple falls within the several days prior to admission Large subdural hematoma resulting in near left hemiparesis Would recommend rehabilitation with PT/OT at [facility] Increase activity as tolerated with supervision (3) Bicuspid aortic valve: Plan: Patient previously anticoagulated Anticoagulation held due to large subdural hematoma with midline shift No further intervention at this time. Focus on palliation (4) COPD (chronic obstructive pulmonary disease): Plan: No history of pulmonary function testing No hypoxia or adventitious breath sounds on examination Previous tobacco abuse history Continue Spiriva 2 puffs daily and DuoNebs as needed Maintain SaO2 between 88 and 92% (5) CAD (coronary artery disease): Plan: Patient denies any acute chest pain. Continue antihypertensives Hold anticoagulation and antiplatelet medications due to SDH DNR/DNI per advanced directive and confirmed by family (6) Diabetes: Plan: At this point, would hold metformin as oral intake will be inconsistent (7) HTN (hypertension): Plan: Continue usual home medications. Maintain blood pressure with a target SBP of 150 or lower No chest pain or tightness (8) AF (atrial fibrillation): Plan: Continue metoprolol tartrate Will discontinue anticoagulation Patient regular on exam today Plan Discussion with daughter Nunu augustin again this morning by phone and also met with her this evening at 6:15 PM with her to discuss disposition We will continue to plan on active treatment of chronic conditions and discharged to [facility] for hospice tomorrow Admission and Anticipated Discharge Date Admission Date: April 28, 2022 Subjective Attending: Dr. Juarez Is an 89-year-old male that had falls at home and was found to have a subdural hematoma. CT scan of the head confirmed this and showed a 1.2 cm midline shift. Initially the patient was confused and was expected to have rapid decline. He was placed on comfort measures only but had no difficulties overnight and did not require any intervention for comfort. The following day, a repeat CT scan of the head was completed and showed no expansion of the hematoma. Patient continues to have some confusion but cannot tell me his name and date of and other minimal information. He is pleasant. He is hard of hearing but answers some questions appropriately. Discussion with family ensued and it was agreed that we would remove the patient from comfort measures only and treat for acute issues such as hypertension and focus on transfer to senior care for hospice care. Patient has been approved at [facility] and it is anticipated the patient will be discharged there tomorrow. Patient denies any headache. No blurred vision. No complaints of pain, nausea, vomiting. Review of Systems Review of Systems: A total of 10 systems was reviewed and is negative other than as listed in the HPI Physical Exam Physical Exam: GENERAL : No acute distress EYES: No icterus, gaze conjugate. Pupils equal round and reactive to light NOSE: No evidence of epistaxis MOUTH: No lesions or candidiasis. Tongue is midline. Patient does stick tongue out for examination on command NECK: Supple. LUNGS: CTA B/L, no wheezes, rales or rhonchi HEART: Regular, rate controlled ABDOMEN: Soft, NT, ND, BS Present EXTREMITIES: No LE edema, pedal pulses intact NEURO: awake and alert. Continued weakness on left side. Doing much better with speech and with eating. Pupils equal round react light. Tongue midline. Follows simple commands without delay. Results & Data Results & Data ([facility]) Vital Signs (Past 12 Hours) Vital Signs Temp Pulse Resp BP Pulse Ox O2 Del Method 04/29/22 15:17 36.7 C 75 16 179/83 H 94 Room Air 04/29/22 13:02 75 20 170/65 H 95 Room Air 04/29/22 10:58 36.5 C 66 16 183/78 H 94 Room Air 04/29/22 09:10 89 18 161/67 H 96 Room Air 04/29/22 07:26 36.5 C 67 20 166/66 H 95 Room Air 04/29/22 06:10 36.7 C 66 17 197/79 H 96 Room Air 04/29/22 04:56 36.7 C 80 19 189/77 H 97 Room Air Critical Care Results & Data Vital Signs (Past 12 Hours) Vital Signs Temp Pulse Resp BP Pulse Ox O2 Del Method 04/29/22 15:17 36.7 C 75 16 179/83 H 94 Room Air 04/29/22 13:02 75 20 170/65 H 95 Room Air 04/29/22 10:58 36.5 C 66 16 183/78 H 94 Room Air 04/29/22 09:10 89 18 161/67 H 96 Room Air 04/29/22 07:26 36.5 C 67 20 166/66 H 95 Room Air Lab & Micro Results (Past 24 Hours) No Data to Display No Data to Display No Data to Display I & O Totals 24 Hours 04/28/22 04/29/22 04/30/22 06:59 06:59 06:59 Intake Total 400 / 400 240 / 240 Output Total 2150 / 2150 1775 / 1775 600 / 600 Balance -1750 / -1750 -1535 / -1535 -600 / -600 Cumulative 04/27/22 01:16 thru 04/29/22 12:53 Intake Total 640 Output Total 4526 Balance -3886 RT Ventilator Mngmt (Last Documented) Ventilator Ordered Settings Respiratory Rate 16 04/29/22 15:17 Ventilator - PT Measurements Respiratory Rate 16 PG Care Time/CCT Total # of Minutes Spent Total Time Spent with Patient: Total time spent is greater than 50% in coordination of care (as documented) at patient's floor/unit and/or counseling patient: 40 minutes Coding Level of Care Code 24867 Subseq Hosp Care Lvl 3 Diagnoses Subdural hematoma, post-traumatic S06.5XAA Weakness R53.1 Bicuspid aortic valve Q23.1 COPD (chronic obstructive pulmonary disease) J44.9 COPD type: unspecified COPD CAD (coronary artery disease) I25.10 Associated angina: without angina Coronary Disease-Associated Artery/Lesion type: unspecified vessel or lesion type [place] vs. transplanted heart: [place] heart Diabetes E11.9 HTN (hypertension) I10 AF (atrial fibrillation) I48.91 (1) COPD (chronic obstructive pulmonary disease) COPD type: unspecified COPD Qualified Code(s): J44.9 - Chronic obstructive pulmonary disease, unspecified (2) CAD (coronary artery disease) Associated angina: without angina Coronary Disease-Associated Artery/Lesion type: unspecified vessel or lesion type [place] vs. transplanted heart: [place] heart Qualified Code(s): I25.10 - Atherosclerotic heart disease of [place] coronary artery without angina pectoris
[2022-04-29] MEDS ORDERED: IPRATROPIUM BROMIDE/ALBUTEROL respimat INH INH PRN (18:39)
[2022-04-29] MEDS: IPRATROPIUM BROMIDE HFA INHALER INH SCH (20:30)
[2022-04-29] MEDS: ALBUTEROL HFA 8 GM INHALER INH SCH (20:30)
[2022-04-29] MEDS: FELODIPINE 2.5 MG TABCR PO SCH (20:40)
[2022-04-29] MEDS ORDERED: TERAZOSIN HCL 5 MG CAP PO SCH (21:00)
[2022-04-30] MEDS: ALBUTEROL HFA 8 GM INHALER INH SCH ×2 (07:21→10:58)
[2022-04-30] MEDS: IPRATROPIUM BROMIDE HFA INHALER INH SCH ×2 (07:21→10:57)
--- NOTE | 2022-04-30 07:53 | Hospitalist Progress Note ---
Date of Service April 30, 2022 Assessment & Plan (1) Subdural hematoma, post-traumatic: Plan: found to have a large subdural hematoma on the right with 1.2 cm midline shift. Patient was anticoagulated and there was concern that this would expand. Anticoagulation was held. Initial concerns for increased mortality. Patient was monitored and showed improvement over the next day. 48 hours later the patient is doing well but continued left-sided weakness and some confusion. Patient without any acute complaints. Repeat CT scan of the head done [address] shows no evolution of the subdural hematoma. PT/OT evaluations completed. Patient appropriate for placement for hospice Will continue with passive range of motion exercises and event the patient has improvement Patient anticipated be discharged 04/30 to [facility]. Patient clearly does not want any intervention or heroics in the event of cardiopulmonary arrest Continue to focus on palliative care and treat known chronic medical conditions. (2) Weakness: Plan: Patient reports of multiple falls within the several days prior to admission Large subdural hematoma resulting in near left hemiparesis Would recommend rehabilitation with PT/OT at [facility] Increase activity as tolerated with supervision (3) Bicuspid aortic valve: Plan: Patient previously anticoagulated Anticoagulation held due to large subdural hematoma with midline shift No further intervention at this time. Focus on palliation (4) COPD (chronic obstructive pulmonary disease): Plan: No history of pulmonary function testing No hypoxia or adventitious breath sounds on examination Previous tobacco abuse history Continue Spiriva 2 puffs daily and DuoNebs as needed Maintain SaO2 between 88 and 92% (5) CAD (coronary artery disease): Plan: Patient denies any acute chest pain. Continue antihypertensives Hold anticoagulation and antiplatelet medications due to SDH DNR/DNI per advanced directive and confirmed by family (6) Diabetes: Plan: At this point, would hold metformin as oral intake will be inconsistent (7) HTN (hypertension): Plan: Continue usual home medications. Maintain blood pressure with a target SBP of 150 or lower No chest pain or tightness (8) AF (atrial fibrillation): Plan: Continue metoprolol tartrate Will discontinue anticoagulation Patient regular on exam today Admission and Anticipated Discharge Date Admission Date: April 28, 2022 Results & Data Results & Data ([facility]) Vital Signs (Past 12 Hours) Vital Signs Temp Pulse Resp BP Pulse Ox O2 Del Method 04/30/22 02:17 98.1 F 66 18 154/58 H 93 Room Air 04/29/22 23:34 149/69 H 04/29/22 21:01 98.2 F 82 20 174/79 H 96 Room Air 04/29/22 20:16 87 205/150 H PG Care Time/CCT Total # of Minutes Spent Total Time Spent with Patient: Total time spent is greater than 50% in coordination of care (as documented) at patient's floor/unit and/or counseling patient: Coding Diagnoses Subdural hematoma, post-traumatic S06.5XAA Weakness R53.1 Bicuspid aortic valve Q23.1 COPD (chronic obstructive pulmonary disease) J44.9 COPD type: unspecified COPD CAD (coronary artery disease) I25.10 Associated angina: without angina Coronary Disease-Associated Artery/Lesion type: unspecified vessel or lesion type [place] vs. transplanted heart: [place] heart Diabetes E11.9 HTN (hypertension) I10 AF (atrial fibrillation) I48.91 (1) COPD (chronic obstructive pulmonary disease) COPD type: unspecified COPD Qualified Code(s): J44.9 - Chronic obstructive pulmonary disease, unspecified (2) CAD (coronary artery disease) Associated angina: without angina Coronary Disease-Associated Artery/Lesion type: unspecified vessel or lesion type [place] vs. transplanted heart: [place] heart Qualified Code(s): I25.10 - Atherosclerotic heart disease of [place] coronary artery without angina pectoris
[2022-04-30] MEDS: METOPROLOL TARTRATE 25 MG TAB PO SCH (08:37)
[2022-04-30] MEDS: FELODIPINE 2.5 MG TABCR PO SCH (08:38)
[2022-04-30] MEDS ORDERED: FINASTERIDE 5 MG TAB PO SCH (09:00)
--- NOTE | 2022-04-30 16:34 | Discharge Summary ---
Date of Service April 30, 2022 Admission HPI Per Admitting Provider Eddie Hassan is an 89yo male with history of DM, HTN, HLP, CAD, COPD and AF on Coumadin anticoagulation presenting from home with frequent falls. Patient reports falling 3 times today. After the third fall he was unable to get up and called his family for assistance. He denies chest pain, palpitations, weakness or syncope. No LOC. 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 He did not hit his head. Family was unaware that the patient was having a difficult time ambulating. He presently lives alone in a single story home. He does not use a cane or walker. Family is requesting that he be assessed for rehabilitation needs. Patient has no additional complaints at this time. Principal Diagnosis intracranial hemorrhage Discharge Exam The patient appeared stable, has left sided weakness and memory loss Vital signs as documented. Lungs appear unlabored Cardiac exam, Rhythm is regular.. Neurologic exam is alert and does follow commands Skin is without bruises or rashes Discharge Data Allergies Allergy/AdvReac Type Severity Reaction Status Date / Time No Known Allergies Allergy Unknown Verified 04/27/22 02:38 Consultations 04/27/22 04:45 ED Decision to Admit Stat Ordered Studies 04/27/22 13:08 CT head/brain wo con Stat 04/28/22 15:23 CT head/brain wo con Urgent Hospital Course (1) Subdural hematoma, post-traumatic: found to have a large subdural hematoma on the right with 1.2 cm midline shift. Patient was anticoagulated and there was concern that this would expand. Anticoagulation was held. Initial concerns for increased mortality. Patient was monitored and showed improvement over the next day. 48 hours later the patient is doing well but continued left-sided weakness and some confusion. Patient without any acute complaints. Repeat CT scan of the head done [address] shows no evolution of the subdural hematoma. PT/OT evaluations completed. Patient appropriate for placement for hospice Will continue with passive range of motion exercises and event the patient has improvement Patient anticipated be discharged 04/30 to [facility]. Patient clearly does not want any intervention or heroics in the event of cardiopulmonary arrest Continue to focus on palliative care and treat known chronic medical conditions. (2) Weakness: Patient reports of multiple falls within the several days prior to admission Large subdural hematoma resulting in near left hemiparesis Would recommend rehabilitation with PT/OT at [facility] Increase activity as tolerated with supervision (3) Bicuspid aortic valve: Patient previously anticoagulated Anticoagulation held due to large subdural hematoma with midline shift No further intervention at this time. Focus on palliation (4) COPD (chronic obstructive pulmonary disease): No history of pulmonary function testing No hypoxia or adventitious breath sounds on examination Previous tobacco abuse history Continue Spiriva 2 puffs daily and DuoNebs as needed Maintain SaO2 between 88 and 92% (5) CAD (coronary artery disease): Patient denies any acute chest pain. Continue antihypertensives Hold anticoagulation and antiplatelet medications due to SDH DNR/DNI per advanced directive and confirmed by family (6) Diabetes: At this point, would hold metformin as oral intake will be inconsistent (7) HTN (hypertension): Continue usual home medications. Maintain blood pressure with a target SBP of 150 or lower No chest pain or tightness (8) AF (atrial fibrillation): Continue metoprolol tartrate Will discontinue anticoagulation Patient regular on exam today Total Time Total Time Spent Total Time Spent (In Minutes): It required greater than 30 minutes to prepare this patient for discharge Discharge Plan Discharge Items Patient Disposition: Transfer Long-Term Fac Reason For Visit: [place] Discharge Diagnosis: intracranial hemorrhage with midline shift COPD AFib Activity: Per Instructions section Activity Comment: enrolled in hospice Non-emergency contact: Primary Care Provider Call non-emergency contact if: your pain is not controlled Follow-up/Referrals: Eddi Ruff DO [Primary Care Provider] - Diet: Regular Addtl Attending Provider Instructions: unfortunately discovered a intracranial hemorrhage with midline shift, thankfully you have recovered good neurologic function we are handing over care to the [facility] team to create a care plan to support you in the post acute care setting Pending Studies at Discharge: No Stand-Alone Forms: [facility] [email or web address] Skilled Items Patient informed of condition?: Yes DNR: Yes Discharge Level of Care: Skilled Communicable Disease: No Discharge Prognosis: Stable Lines: None Urinary Catheter: Yes Medications and DC Order Prescriptions: New albuterol sulfate [Ventolin HFA] 90 mcg/actuation Hfa Aerosol Inhaler 1 puff inhalation Q6H PRN (Reason: shortness of breath or wheezing) Qty: 6.7 0RF morphine concentrate 100 mg/5 mL (20 mg/mL) solution 20 mg sublingual Q6H PRN (Reason: pain) Qty: 15 0RF Rx Instructions: hospice med lorazepam [Ativan] 0.5 mg tablet 0.5 mg sublingual Q4H PRN (Reason: alcohol withdrawal) Qty: 20 0RF Rx Instructions: hospice med ondansetron HCl 4 mg tablet 4 mg PO TID PRN (Reason: nausea and vomiting) Qty: 14 0RF Continued Spiriva Respimat 2.5 mcg/actuation mist 2 puff INHALATION DAILY 90 Days Qty: 12 3RF nitroglycerin 0.4 mg Tablet, Sublingual 0.4 mg Sublingual DIRECTED PRN (Reason: Chest Pain) Changed metoprolol tartrate 25 mg tablet 25 mg PO BID 30 Days Qty: 60 5RF Discontinued atorvastatin 40 mg tablet 40 mg PO QPM Qty: 30 5RF warfarin 5 mg tablet 5 mg PO .COMPLEX 30 Days Qty: 30 5RF Rx Instructions: 5 MG TABS; TAKES 2.5 MG ON TUESDAY & FRIDAYS, THEN 5 MG ON TUE, TUE, TUE, , & SAT. triamcinolone acetonide 0.1 % cream 1 applic topical BID PRN (Reason: Rash) Qty: 30 11RF ipratropium-albuterol 20-100 mcg/actuation mist 1 puff inhalation Q6H PRN (Reason: shortness of breath or wheezing) 90 Days Qty: 12 3RF terazosin 10 mg capsule 10 mg PO HS Qty: 90 3RF metformin 500 mg tablet,ER ayden.retention 24 hr 500 mg PO DAILY Qty: 90 3RF finasteride 5 mg tablet 5 mg PO DAILY Qty: 90 3RF felodipine 2.5 mg tablet extended release 24 hr 2.5 mg PO BID Qty: 180 0RF calcium carbonate-vitamin D3 [Calcium 600 + D(3)] 600 mg(1,500mg) -400 unit tablet 1 tab PO DAILY vitamin E (dl, acetate) 400 unit capsule 400 units PO DAILY aspirin 81 mg tablet,delayed release (DR/EC) 81 mg PO DAILY Qty: 30 niacin 250 mg capsule, extended release 250 mg PO DAILY ascorbic acid (vitamin C) 500 mg tablet 500 mg PO DAILY Adult Probiotic 3 billion cell capsule 3,000 mmu cells PO BID 28 Days Qty: 56 0RF Rx Instructions: administer with a meal multivitamin Tablet 1 tab PO DAILY Discharge Orders: Discharge Order (Routine); Ordered 04/30/22 Ordered By: Isaiah Juarez Admission Data Admit Date/Time: 04/28/22 11:18 Attending Provider: Isaiah Juarez Admit Provider: Berenice Nguyen Primary Care Provider: Eddi Ruff. Other Providers: Berenice Nguyen ; [place] Other Interventions: Discharge Summary Assessment (RN) Last Done: 04/30/22 13:47 Coding Level of Care Code D/C DAY MANAGEMENT >30 MINS Diagnoses Subdural hematoma, post-traumatic S06.5XAA Weakness R53.1 Bicuspid aortic valve Q23.1 COPD (chronic obstructive pulmonary disease) J44.9 COPD type: unspecified COPD CAD (coronary artery disease) I25.10 Associated angina: without angina Coronary Disease-Associated Artery/Lesion type: unspecified vessel or lesion type [place] vs. transplanted heart: [place] heart Diabetes E11.9 HTN (hypertension) I10 AF (atrial fibrillation) I48.91
== END 2022-04-30 14:41 | disposition hospice, home (50) | DRG 86 ==
LOC: 3W 01:30 → ED 01:30 → SUATTDRO 04:01 → 3W 04:40